=== PATIENT | female | born 1960 ===

== ENCOUNTER 2025-03-20 09:23 | Outpatient (AMB) | payer MEDICARE, OTHER, SELFPAY ==
--- NOTE | 2025-03-20 09:32 | A.OFFVIS_ITS ---
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 The joint pain began approximately one month ago, leading to an emergency room visit due to severe discomfort and sleep disturbances. The patient has a history of arthritis associated with psoriasis, which initially affected her knees and has now progressed to other joints. The patient also has a history of uncontrolled type 2 diabetes mellitus, with a recent A1c level of 10, attributed to personal stressors and lack of self-care. She reports not adhering to her diabetes management plan, which has contributed to her current health status. The patient experiences shoulder pain, particularly in both shoulders, with the right side being more painful. The pain is exacerbated by sleeping on her side and is associated with limited range of motion, especially during overhead activities. She has a history of subacromial bursitis and adhesive capsulitis in the left shoulder, which has been previously managed with injections. The patient reports knee pain, particularly in the right knee, which is aggravated by walking and climbing stairs. She has received knee injections in the past, which provided temporary relief. The pain is described as constant, sharp, and achy, with a severity of 8/10 in the morning, improving to 5/10 by the afternoon. The patient denies smoking, alcohol, and marijuana use, and has a supportive family environment. She engages in some physical activity with her grandchildren, who encourage her to exercise. - Onset: Pain began approximately one month ago. - Quality: Described as constant, sharp, dull, sore, hurting, achy, and heavy. - Severity: Rated as 8/10 in the morning, improving to 5/10 by the afternoon. - Location: Affects hands, fingers, toes, shoulders, and knees, with the right shoulder and right knee being more painful. - Exacerbating factors: Pain worsens with sleeping on the side, walking, climbing stairs, and heat exposure. - Relieving factors: Cold exposure and movement improve pain. - Interference: Pain interferes with sleep, mobility, and daily activities. - Affect: Pain impacts sleep and daily activities, causing fatigue and difficulty with mobility. - Analgesia: Currently using Tylenol Arthritis; pain rated as 8/10 in the morning, improving to 5/10 by the afternoon. - Adverse Effects: No adverse effects from current pain management reported. - Activities of Daily Living: Pain affects ability to sleep, walk, and perform overhead activities. - Aberrant Drug Related Behaviors: No signs of medication misuse or abuse reported. [facility] Medical History (Updated 03/23/25 @ 10:05 by CAMPOS Qiu) Unspecified ovarian cyst, unspecified side Tendinitis of left rotator cuff Subacromial bursitis of left shoulder joint Pterygium Microalbuminuria Plaque psoriasis Nuclear sclerosis Iron deficiency anemia Hyperlipidemia Hypertension GERD (gastroesophageal reflux disease) DM (diabetes mellitus), type 2 with renal complications Asthma Arthropathic psoriasis, unspecified Allergic rhinitis Adhesive capsulitis of left shoulder Social History (Updated 03/20/25 @ 09:45 by Montse Mckinley) Alcohol intake: never Patient Tobacco Use Status: Never used Tobacco Review of Systems Const Details: - Musculoskeletal: Reports joint pain in hands, fingers, toes, shoulders, and knees; denies numbness and tingling. - Endocrine: Reports uncontrolled diabetes with recent A1c of 10. - Respiratory: Denies smoking, alcohol, and marijuana use. - Neurological: Denies numbness and tingling, bladder or bowel dysfunction or saddle anesthesia All systems reviewed & are unremarkable except as noted in HPI and below Physical Exam Vital Signs: Last Vital Signs Pulse 79 03/20/25 09:37 BP 146/72 H 03/20/25 09:37 Pulse Ox 98 03/20/25 09:37 Oxygen Delivery Method Room Air 03/20/25 09:37 BMI result Body Mass Index 32.1 General: Appears afebrile. Alert and oriented. Mood and affect appropriate. Follows and participates in conversation appropriately. Respiratory effort is unlabored. No cough. Able to transition from sit to stand unassisted. Ambulates with bilaterally normal heel strike and toe off. Back/Spine/Pelvis Cervical Spine: cervical ROM normal, cervical muscular tenderness and No Cervical spine tenderness Thoracic/Lumbar Spine: thoracic and lumbar spine normal to inspection, Lasegue's sign negative, straight leg raise negative bilaterally, pain with thoraco-lumbar ROM, thoraco-lumbar ROM limited, No thoracic spinal tenderness and No lumbar spinal tenderness Sacroiliac joints: bilaterally tender to palpation Skin Rashes: rashes noted (lower extremities psoriatic rash with scaly patches) Extrem General: Yes capillary refill normal, Yes no clubbing, cyanosis or edema and Yes no calf tenderness Right upper extremity: shoulder/upper arm (Limited ROM due to pain) Details: normal to inspection, tenderness Location: of the A-C joint and over the subacromial bursa and crepitus; no swelling and no unusual warmth Right lower extremity: knee (Limited ROM due to pain) Details: normal to inspection, tenderness Location: of the medial joint line and of the lateral joint line, swelling Location: of the pre-patellar area and crepitus; no ecchymosis, no deformity and no unusual warmth Results Reviewed Results Reviewed: XR KNEE, RIGHT 03/20/25 CLINICAL INFORMATION: M25.561 - Pain in right knee COMPARISON: None available. TECHNIQUE: Three views of the right knee. FINDINGS: No fracture, dislocation, or suspicious bone lesion. There is grossly normal alignment. Tricompartmental osteoarthritis, moderate in the medial compartment, with mild to moderate changes in the lateral and patellofemoral compartments. There is spurring of the tibial spines. Patellofemoral alignment demonstrates mild lateral tilt. There are patellofemoral marginal osteophytes. There is a moderate suprapatellar joint effusion. Soft tissues demonstrate vascular calcifications but are otherwise normal. IMPRESSION: 1. Moderate tricompartmental osteoarthritis worst in the medial compartment. 2. Moderate suprapatellar joint effusion. XR SHOULDER, bilateral CLINICAL INFORMATION: M25.511 - Pain in right shoulder COMPARISON: None available. TECHNIQUE: AP external rotation, Grashey, scapular Y, and axillary views of the right shoulder. FINDINGS: Right shoulder: Medium-sized marginal osteophytes are present involving humeral head. There is a 1 cm central osteophyte involving superior lateral humeral head. Marginal osteophytes are small involving glenoid. There is mild narrowing of the glenohumeral joint. AC joint is intact and unremarkable. No fracture is identified. Left shoulder: There is mild AC joint arthropathy with small marginal osteophytes. There is no AC joint separation. Glenohumeral joint is unremarkable. No fractures are identified. IMPRESSION: Moderate degenerative change is present in the right shoulder joint. There is mild left AC joint arthropathy. Assessment & Plan Assessment & Plan (1) Arthropathic psoriasis, unspecified: Code(s): L40.50 - Arthropathic psoriasis, unspecified Category: Medical (2) Polyarthralgia: Code(s): M25.50 - Pain in unspecified joint Category: Medical (3) Bilateral shoulder pain: Code(s): M25.511 - Pain in right shoulder; M25.512 - Pain in left shoulder Category: Medical (4) Right knee pain: Code(s): M25.561 - Pain in right knee Category: Medical (5) Osteoarthritis of right knee: Code(s): M17.11 - Unilateral primary osteoarthritis, right knee Category: Medical (6) Bilateral shoulder pain: Code(s): M25.511 - Pain in right shoulder; M25.512 - Pain in left shoulder Category: Medical (7) Arthropathic psoriasis, unspecified: Code(s): L40.50 - Arthropathic psoriasis, unspecified Category: Medical (8) Polyarthralgia: Code(s): M25.50 - Pain in unspecified joint Category: Medical (9) Right knee pain: Code(s): M25.561 - Pain in right knee Category: Medical (10) Osteoarthritis of right knee: Code(s): M17.11 - Unilateral primary osteoarthritis, right knee Category: Medical (11) Osteoarthritis of right shoulder: Code(s): M19.011 - Primary osteoarthritis, right shoulder Category: Medical Plan The patient will be referred to a Inspector [employer] for further evaluation and management of her joint pain, particularly due to the history of arthropathic psoriasis and the recent onset of multiple joint pain. She underwent x-rays of both shoulders and right knee after today's visit, as noted above. Physical therapy is recommended to address shoulder and knee pain, with a focus on improving range of motion and strength. The patient is advised to continue using Tylenol for pain management and to consider [id number] lidocaine patches for additional relief, although insurance coverage may be limited. A diagnostic injection for the right knee is planned to evaluate the potential benefit of nerve ablation for long-term pain relief, contingent upon the patient's response to the injection. The patient's diabetes management needs to be optimized, with a target A1c of less than 7.5, to qualify for certain pain management procedures such as therapeutic injections and neuromodulation in the future. Schedule right diagnostic genicular nerve blocks with local and fluoroscopy for potential genicular RFA. Expectations, risks and benefits were reviewed. Patient is aware she will be contacted to schedule this procedure. Due to uncontrolled diabetes with elevated A1c above 10, patient is not candidate for therapeutic injections or Sprint PNS trial. All questions and concerns have been answered and patient agreed with the treatment plan. Follow up after injections and sooner as needed. Patient was informed and verbally consented to the use of an ambient scribe for clinic note documentation during this visit. Orders: Orders XR shoulder LT min 2V 03/20/25 M25.511 - Pain in right shoulder, M25.512 - Pain in left shoulder, M75.82 - Other shoulder lesions, left shoulder PT Evaluation and Treatment 03/20/25 L40.50 - Arthropathic psoriasis, unspecified, M17.11 - Unilateral primary osteoarthritis, right knee, M25.50 - Pain in unspecified joint, M25.511 - Pain in right shoulder, M25.512 - Pain in left shoulder, M25.561 - Pain in right knee XR knee RT 3V 03/20/25 M17.11 - Unilateral primary osteoarthritis, right knee, M25.561 - Pain in right knee Referrals Rheumatology Referral L40.50 - Arthropathic psoriasis, unspecified, M17.11 - Unilateral primary osteoarthritis, right knee, M25.50 - Pain in unspecified joint, M25.511 - Pain in right shoulder, M25.512 - Pain in left shoulder, M25.561 - Pain in right knee Medications: New lidocaine 5% 1 patch topical DAILY 30 ea 0RF pain 30 days M17.11 - Unilateral primary osteoarthritis, right knee, M25.561 - Pain in right knee Coding Level of Care Code New Pt Level 4 (33143) Diagnoses Arthropathic psoriasis, unspecified L40.50 Polyarthralgia M25.50 Bilateral shoulder pain M25.511; M25.512 Right knee pain M25.561 Osteoarthritis of right knee M17.11 Osteoarthritis of right shoulder M19.011
[2025-03-20 09:37] VITALS: BP 146/72; PULSE 79; O2SAT 98; BMI 32.1
--- OUTSIDE RECORDS SUMMARY | 2025-03-20 10:14 | XMS_ITS ---
Author Name [facility] Organization Unknown Care Team Organization Name Specialty Phone Email Start Date End [facility] 02/11/2025
--- OUTSIDE RECORDS SUMMARY | 2025-03-20 10:14 | XMS_ITS | Clinical Summary ---
Author Organization Patient Business Ser [facility] Address [address] [place] [address] Care Team Providers Care Interior Assemblies Developer Prover Name Role Phone Aron Godinez MD Primary Care Provider [phone] Allergies Active Allergy Reactions Criticality Noted Date Comments Fish Containing Products High 07/14/2014 Hives and lip swelling Plantain High 07/14/2014 Bananas/plantains Hives and lip swelling Medications ixekizumab (Taltz Autoinjector, 3 Pack,) 80 mg/mL injection Inject 1 mL (80 mg total) under the skin 2 (two) times a week. Historical 4 Active fluticasone propionate (FLONASE) 50 mcg/actuation nasal spray Administer 2 sprays into each nostril 1 (one) time each day. 0 Active glucose blood test strip Use as needed to check blood glucose if Jackie sensor reading for blood sugar is below 65 or if there is question of Jackie CGM accurancy. 4 Active iron,carb/vit C/vit B12/folic (IRON 100 PLUS ORAL) 1 tab every other day Active pen needle, diabetic (LITE TOUCH INSULIN PEN NEEDLES MISC) Use with insulin daily 4 Active BD Ultra-Fine Short Pen Needle 31 gauge x 5/16 needle USE WITH INSULIN DAILY 4 Active empagliflozin (Jardiance) 25 mg tablet Take 1 tablet (25 mg total) by mouth 1 (one) time each day. 90 tablet 3 4 Active lancets (Safety Lancets) 21 gauge misc Use to check BS daily 100 each 11 4 Active albuterol HFA (PROAIR HFA ; PROVENTIL HFA ; VENTOLIN HFA) 90 mcg/actuation inhaler Inhale 2 puffs by mouth every 4 (four) hours if needed for wheezing. 6.7 g 1 5 04/25/20 25 Active losartan (COZAAR) 25 mg tablet TAKE 1/2 TABLET(12.5 MG) BY MOUTH 1 TIME EACH DAY 45 tablet 1 5 Active atorvastatin (LIPITOR) 80 mg tablet TAKE 1 TABLET(80 MG) BY MOUTH 1 TIME EACH DAY 30 tablet 1 5 Active acetaminophen (TYLENOL 8 HOUR) 650 mg 8 hr tablet Take 1 tablet (650 mg total) by mouth every 8 (eight) hours if needed for mild pain. Do not crush, chew, or split. Active metFORMIN XR (GLUCOPHAGE-XR) 500 mg 24 hr tablet Take 4 tabs daily with breakfast 360 each 5 Active insulin degludec (TRESIBA FlexTouch U-200) 200 unit/mL (3 mL) CONCENTRATED injection pen 85 units SC at bedtime 5 Active diclofenac (VOLTAREN) 1 % topical gel Apply 2 g topically 2 (two) times a day. 2 g 11 5 Active Active Problems Problem Noted Date Diagnosed Date Arthropathic psoriasis, unsp ecified [place] [place], [facility] V28) 02/18/2025 Gastroesophageal reflux disease 07/19/2023 Type 2 diabetes mellitus wit h cataract ([facility] [place], [facility] V28) 05/24/2020 Subacromial bursitis of left shoulder joint 03/26 Adhesive capsulitis of left shoulder 03/08/2020 Tendinitis of left rotator cuff 03/08/2020 DM (diabetes mellitus), type 2 with renal complications ([facility] [place], [facility] V28) 11/27/2018 Overview (04/25/2024): Last Assessment & Plan: Labs ordered to be done in the next few days and any medication adjustment will be based on lab results. For now continue with Lantus 55 units daily, Trulicity 3 mg weekly and Metformin 500 mg 2 tablets daily. Discussed in detail diet to help control his blood sugars. Encouraged a low-fat, lean protein, high-fiber, low carbohydrate diet. Discussed avoiding sweets and junk food. Decrease the amount of bread, rice, pasta and potatoes. Regular exercise also encouraged to help with weight loss and provide cardiovascular benefit. Recheck in office in 3 months. Call endocrine to schedule follow-up. Avascular necrosis of lunate ([facility] V24, [facility]/ [facility] V28) 01/17/2016 Overview (04/25/2024): Noted at [facility] 01/13/16, referred to Dr Poe(ortho) HTN (hypertension) 05/29/2014 Overview (04/25/2024): Last Assessment & Plan: Continue losartan 25 mg half tablet daily. Labs ordered to be done in the next few days. Will continue to monitor blood pressures in office at next visit. Discussed dietary strategies to help control his blood pressure. Encouraged low-fat, lean protein, high-fiber, low-cholesterol, low carbohydrate diet. Regular exercise and weight loss also encouraged to help with blood pressure control. Recheck in 3 months. Hyperlipidemia with target LDL less than 100 06/2013 Overview (04/25/2024): IMO update Last Assessment & Plan: Continue atorvastatin 40 mg daily. Discussed diet, exercise and weight loss. Labs ordered to be done in the next few days and further adjustment in treatment can be based on lab results. Plaque psoriasis 11/26/2012 Overview (04/25/2024): Onset ~ 2009 UV light treatments Enbrel - did not help Humira - changed 2016 - also did not work Nuclear sclerosis 07/12/2009 Pterygium 07/12/2009 Severe obesity (BMI 35.0-39. 9) with comorbidity ([facility] V24, [facility] V28) 05/19/2008 Microalbuminuria 07/25/2007 Allergic rhinitis 11/14/2005 Asthma 03/23/2005 Iron deficiency anemia 03/23/2005 Unspecified ovarian cyst, unspecified side 03/23 Encounters Date Type Department Care Team Description 02/19/2025 Telephone Internal Medicine - [address] [phone] Aron Godinez MD 02/18/2025 9:15 AM EDT Office Visit Internal Medicine - [address] [phone] Sol Ellison NP Arthropathic psoriasis, unspecified ([facility] V24, [facility] V28) (Primary Dx); Pain in other joint 02/17/2025 9:52 AM EDT - 02/17/2025 11:59 PM EDT Hospital Encounter Radiology Department - [address] [phone] Abnormal mammogram Discharge Disposition: Home or Self Care 02/17/2025 9:52 AM EDT - 02/17/2025 11:59 PM EDT Hospital Encounter Radiology Department - [address] [phone] Abnormal mammogram Discharge Disposition: Home or Self Care 02/13/2025 12:53 PM EDT - 02/13/2025 2:[address] [facility] [address] [place] [address] Tre Mccann MD Arthritis (Primary Dx) Discharge Disposition: Home or Self Care 02/10/2025 10:00 AM EDT Office Visit Endocrinology - [address] [phone] Sandi Cummings PA Type 2 diabetes mellitus with stage 3 chronic kidney disease, unspecified whether terminal clerk insulin use, unspecified whether stage 3a or 3b CKD ([facility] V24, [facility] V28) (Primary Dx); Secondary hypertension; Microalbuminuria from Last 3 Months Immunizations Name Administration Dates Next Due H1N1 Inj Preservative Free 06/08/2009 Influenza trivalent, 0.5mL, preservative free (Fluarix; FluLaval; Fluzone) ages 6mo and older (Afluria) 3 years and older 04/06/2015,05/05/2014,04/28/2013,03/26,03/22/2011,03/04/2010,03/21/2009 ,04/10/2008,03/25/2007,04/16/2006,03/26,04/15/2004,04/28/2003 PPD Test 12/23/2012 Pneumococcal polysaccharide 23 valent (Pneumovax 23) 2yo and older 03/25/2007 Td Tetanus diptheria (Tdvax) 7yo and older 12/20/2004,12/20/2004 Tdap Tetanus diptheria acell ular pertussis (Boostrix; Adacel) 7yo and older 12/10/2012 Surgical History Surgery Date Site/Laterality Comments OTHER SURGICAL HISTORY 03/02/06 PROCEDURE: [facility] BIOPSY BONE OPEN DEEP; COMMENT: LEFT WRIST RADIUS bx-Dr. Smith CHOLECYSTECTOMY age 28's at [facility] PROCEDURE: HISTORICAL CHOLECYSTECTOMY; COMMENT: open cholecystectomy per pt COLONOSCOPY 01/29/09 PROCEDURE: HISTORICAL COLONOSCOPY; COMMENT: diverticulosis and hemorrhoids. Repeat in ten years COLONOSCOPY 07/14/14 PROCEDURE: HISTORICAL COLONOSCOPY; COMMENT: tics and hemorrhoids; repeat in ten yrs Medical History Medical History Date Comments Iron deficiency anemia, unspecified 03/23/2005 DX:Iron deficiency anemia, unspecified Other and unspecified ovarian cyst 03/23/2005 DX:Other and unspecified ovarian cyst Plantar fascial fibromatosis 03/23/2005 DX: Plantar fascial fibromatosis Unspecified asthma(493.90) 03/23/2005 DX:Un specified asthma(493.90) Allergic rhinitis, cause unspecified 11/14/2005 DX:Allergic rhinitis, cause unspecified Historical Medical DX 12/23/2013 DX:Hyperli pidemia LDL goal < 100 Historical Medical DX 03/31 DX:Diabete s with renal manifestations; COMMENT: mild microalbuminuria Type II or unspecified type diabetes mellitus with renal manifestations, not stated as uncontrolled(250.40) ([facility] V24, [facility] V28) 07/25/2007 DX:Type II or unspecified t ype diabetes mellitus with renal manifestations, not stated as uncontrolled(250.40) ([facility]) HTN (hypertension) 05/29/2014 DX:HTN (hyper tension) Avascular necrosis of lunate ([facility] [place], [facility] [place]) 01/17/2016 DX:Avascular necrosis of everette ate (HCC); COMMENT: Noted at [facility] 01/13/16, referred to Dr Poe(ortho) Type 2 diabetes mellitus wit h microalbuminuria ([facility] [place], [facility]) 11/27/2018 DX:Type 2 diabetes mellitus with microalbuminuria (HCC) DM (diabetes mellitus), type 2 with renal complications ([facility] [place], [facility]) 11/27/2018 DX:DM (diabetes mellitus), t ype 2 with renal complications (HCC) Microalbuminuria 07/25/2007 DX:Microalbumin uria Type 2 diabetes mellitus wit h cataract ([facility] [place], [facility]) 05/24/2020 DX:Type 2 diabetes mellitus with cataract (HCC) Severe obesity (BMI 35.0-39. 9) with comorbidity ([facility] V24, [facility] V28) 05/19/2008 DX:Severe obesity (BMI 35.0- 39.9) with comorbidity ([facility]) Gastroesophageal reflux disease 07/19/2023 DX:Gastroesophageal reflux disease Family History Medical History Relation Name Comments No Known Problems Aunt 1 Other: cancer kidney Aunt 2 not beryl e No Known Problems Brother 1 No Known Problems Brother 2 No Known Problems Father No Known Problems Maternal Grandfather No Known Problems Maternal Grandmother Cataracts Mother Asthma Other 1 Hypertension Other 1 Stroke Other 1 Strabismus Other 2 daughter No Known Problems Paternal Grandfather No Known Problems Paternal Grandmother No Known Problems Sister 1 No Known Problems Sister 2 No Known Problems Uncle 1 No Known Problems Uncle 2 Blindness Neg Hx Breast cancer Neg Hx Glaucoma Neg Hx Macular degeneration Neg Hx Relation Name Status Comments Aunt 1 Maternal aunt d ied of [place] Aunt 2 Brother 1 Alive x4, healthy Brother 2 (Age age 5) intesti nal problem Father (Age 55) CAD onset age 50's Maternal Grandfather Maternal Grandmother Mother Alive CAD, Other 1 Other 2 Paternal Grandfather Paternal Grandmother Sister 1 Alive x4, one has je betes & asthma Sister 2 (Age stillborn) Uncle 1 Alive Diabetes, Mater nal uncle Uncle 2 Paternal Uncle. Prostate cancer, [place] Social History Tobacco Use Types Packs/Day Years Used Date Smoking Tobacco: Never Smokeless Tobacco: Never Tobacco Cessation:Counseling Given: Not Answered Alcohol Use Standard Drinks/Week Comments Yes 0 (1 standard drink = 0.6 oz pur e alcohol) Comments No Sex and Gender Information Value Date Recorded Sex Assigned at Not on file Legal Sex Female 1:38 PM EDT Gender Identity Not on file Sexual Orientation Not on file Obstetrics History Para Term AB IAB SAB Ectopic Multiple Livin g Live Births 3 3 3 3 Date Outcome GA Total Labor Labor/2nd/3rd Weight Sex Type Anes PTL Amberly A1 A5 Name Clin Term Term Term Last Filed Vital Signs Vital Sign Reading Time Taken Comments Blood Pressure 128/68 02/18/2025 9:36 AM EDT Pulse 64 02/18/2025 9:13 AM EDT auto cuff Temperature 36.4 C (97.6 F) 02/18/2025 9:13 AM EDT Respiratory Rate 18 02/13/2025 12:5 0 PM EDT Oxygen Saturation 98% 02/13/2025 12: 50 PM EDT Inhaled Oxygen Concentration - - Weight 77.4 kg (170 lb 11.2 oz) 02/18/2025 9:13 AM EDT Height 154.9 cm (5' 1 ) 02/13/2025 12:5 0 PM EDT Body Mass Index 32.25 02/13/2025 12:50 PM EDT Plan of Treatment Upcoming Encounters Date Type Department Care Team (Late st Contact Info) Description 05/13/2025 9:15 AM EST Office Visit Internal Medicine - [address] [phone] Aron Godinez MD [address] [place] [id number] 05/26/2025 1:15 PM EST Office Visit Endocrinology [address] [phone] Sandi Cummings PA [address] [place] [id number] Health Maintenance Due Date Last Done Comments Zoster Vaccines (1 of 2) 1977 Pneumococcal Vaccine: 50+ Years (2 of 2 - PCV) 03/25/2008 03/25/2007 RSV Immunization Adult Patients (1 - Risk 60-74 years 1-dose series) 2018 Medicare Annual Wellness Visit 10/27/2020 Social Influencers of Health Screening 10/27/2020 COVID-19 Vaccine (3 - Pfizer risk series) 11/02/2020 10/05/2020, 09/13/2020 DTaP,Tdap,and Td Vaccines (4 - Td or Tdap) 12/10/2022 12/10/2012, 12/20/2004, 12/20/2004 Falls Risk Assessment 08/30/2023 Depression Screening 06/25/2024 Colorectal Cancer Screening: Colonoscopy 07/14/2024 07/14/2014, 07/14/2014 Diabetes: Annual Foot Exam 07/19/2024 07/19/2023 Influenza Vaccine (#1) 2025 5, 05/05/2014, 04/28/2013, Additional history exists Diabetes: Annual Retina Eye Exam 05/06/2025 05/06/2024 Diabetes: Blood Sugar Control Test (HGBA1C) 08/13/2025 02/10/2025, 11/07/2024, 06/03/2024, Additional history exists Diabetes: Annual GFR (Glomerular Filtration Rate) 10/27/2025 10/27/2024, 04/29/2024, 02/20/2024, Additional history exists Hypertension/CHF/CAD Annual BMP Blood Test 10/27/2025 10/27/2024, 04/29/2024, 02/20/2024, Additional history exists Diabetes: Annual Urine Albumin-Creatinine Ratio (uACR) 02/10/2026 02/10/2025, 07/19/2023 Breast Cancer Screening 02/17/2027 02/18/20, 11/11/2024, 11/07/2024, Additional history exists Cholesterol Screening (Lipid Panel) 10/27/2029 10/27/2024, 04/29/2024, 02/20/2024, Additional history exists Osteoporosis Screening (Bone Density Screening) 11/04/2033 11/05/2023, 11/05/2023 Hepatitis C Screening Completed 12/10/2012 HIB Vaccines Aged Out No longer eligi ble based on patient's age to complete this topic HPV Vaccines Aged Out No longer eligi ble based on patient's age to complete this topic Hepatitis A Vaccines Aged Out No long er eligible based on patient's age to complete this topic Hepatitis B Vaccines Aged Out No long er eligible based on patient's age to complete this topic IPV Vaccines Aged Out No longer eligi ble based on patient's age to complete this topic MMR Vaccines Aged Out No longer eligi ble based on patient's age to complete this topic Meningococcal ACWY Vaccine Aged Out N o longer eligible based on patient's age to complete this topic Meningococcal B Vaccine Aged Out No l onger eligible based on patient's age to complete this topic RSV Immunization Patients Under 20 months Aged Out No longer eligible based on patient's age to complete this topic Varicella Vaccines Aged Out No longer eligible based on patient's age to complete this topic Procedures Procedure Name Priority Date/Time Associated Diagnosis Comments US BREAST LIMITED LEFT Routine 02/17/2025 10:23 AM EDT Abnormal mammogram MG MAMMO DIAGNOSTIC ADDL VIEWS LEFT Routine 02/17/2025 10:11 AM EDT Abnormal mammogram HEMOGLOBIN A1C Routine 02/10/2025 11:14 AM EDT Type 2 diabetes mellitus with stage 3 chronic kidney disease, unspecified whether terminal clerk insulin use, unspecified whether stage 3a or 3b CKD ([facility] V24, [facility] V28) MICROALBUMIN CREATININE URINE RATIO Routine 02/10/2025 11:14 AM EDT Type 2 diabetes mellitus with stage 3 chronic kidney disease, unspecified whether terminal clerk insulin use, unspecified whether stage 3a or 3b CKD (CMS/HCC V24, [facility] V28) POC GLUCOSE Routine 02/10/2025 10:39 AM EDT Type 2 diabetes mellitus with stage 3 chronic kidney disease, unspecified whether shelter insulin use, unspecified whether stage 3a or 3b CKD (CMS/HCC V24, [facility] V28) BASIC METABOLIC PANEL Routine 10/27/2024 11:29 AM EDT Type 2 diabetes mellitus with cataract ([facility] V24, [facility] V28) LIPID PANEL WITH REFLEX TO DIRECT LDL Routine 10/27/2024 11:29 AM EDT Type 2 diabetes mellitus with cataract ([facility] V24, [facility] V28) DXA BONE DENSITY STUDY 1+ SITS AXIAL SKEL Routine 11/05/2023 10:54 AM EDT Encounter for screening for osteoporosis DIABETES FOOT EXAM Routine 07/19/2023 COLONOSCOPY Routine 07/14/2014 HEPATITIS C SCREENING Routine 12/10/2012 from Last 3 Months or Most Recently Relevant to Health Maintenance Results * US Breast Limited Left (02/17/2025 10:23 AM EDT) Anatomical Region Laterality Modality Breast Left Ultrasound 02/17/2025 10:1 4 AM EDT Impressions 02/17/2025 10:36 AM EDT Benign. The focal asymmetry seen on the previous mammogram has resolved. The 2 adjacent nodular hyperechoic areas with small cystic components seen superficially at the 10 o'clock position in the left breast on the previous study have resolved in the interim. Bilateral mammogram October 2025 to resume annual screening is recommended. Findings and recommendations were conveyed to the patient. BI-RADS CATEGORY: 1 - NEGATIVE RECOMMENDATION: Return to annual mammography. Return to annual mammography. Return to annual mammography. Return to annual mammography. Mammo Location: [facility], [address] [place] [address], [id number], . -------- FINAL REPORT -------- Dictated By: Mckayla Muniz Dictated Date: 02/17/2025 10:14 ET Assigned Physician: Mckayla Muniz Reviewed and Electronically Signed By: Mckayla Muniz Signed Date: 02/17/2025 10:36 ET Workstation ID: [id number] Transcribed By: Self Edit Transcribed Date: 02/17/2025 10:22 ET Narrative 02/17/2025 10:36 AM EDT CLINICAL: 64 years old, Female, 3 month follow-up focal asymmetry upper inner left breast 10 o'clock. COMPARISON: Bilateral mammograms dating back to 01/07/2016 with most recent of 11/07/2024. Diagnostic left breast mammogram 11/11/2024. Left breast ultrasound 11/11/2024. FINDINGS: MAMMOGRAPHY TECHNIQUE: MLO and CC views of the left breast were obtained digitally with 3-D mammogram (digital breast tomosynthesis). Computer-aided detection was utilized in evaluation of this exam (CAD). There is no evidence of suspicious mass or architectural distortion. No worrisome calcifications are evident. Focal asymmetry seen in the medial upper left breast on the previous study is no longer present. BREAST DENSITY: B - There are scattered areas of fibroglandular density. ULTRASOUND TECHNIQUE: Ultrasound evaluation of the medial upper left breast was performed. There is no evidence of morphologically suspicious mass. Procedure Note Mckayla Muniz MD - 02/17/2025 CLINICAL: 64 years old, Female, 3 month follow-up focal asymmetry upperinner left breast 10 o'clock. COMPARISON: Bilateral mammograms dating back to 01/07/2016 with mostrecent of 11/07/2024. Diagnostic left breast mammogram 11/11/2024. Leftbreast ultrasound 11/11/2024. FINDINGS: MAMMOGRAPHY TECHNIQUE: MLO and CC views of the left breast were obtained digitallywith 3-D mammogram (digital breast tomosynthesis). Computer-aideddetection was utilized in evaluation of this exam (CAD). There is no evidence of suspicious mass or architectural distortion. Noworrisome calcifications are evident. Focal asymmetry seen in the medialupper left breast on the previous study is no longer present. BREAST DENSITY: B - There are scattered areas of fibroglandular density. ULTRASOUND TECHNIQUE: Ultrasound evaluation of the medial upper left breast wasperformed. There is no evidence of morphologically suspicious mass. IMPRESSION: Benign. The focal asymmetry seen on the previous mammogram has resolved.The 2 adjacent nodular hyperechoic areas with small cystic components seensuperficially at the 10 o'clock position in the left breast on theprevious study have resolved in the interim. Bilateral mammogram October 2025to resume annual screening is recommended. Findings and recommendationswere conveyed to the patient. BI-RADS CATEGORY: 1 - NEGATIVE RECOMMENDATION: Return to annual mammography. Return to annual mammography. Return toannual mammography. Return to annual mammography. Mammo Location: [facility], [address] [place] [address], [id number], . -------- FINAL REPORT -------- Dictated By: Mckayla Muniz Dictated Date: 02/17/2025 10:14 ET Assigned Physician: Mckayla Muniz Reviewed and Electronically Signed By: Mckayla Muniz Signed Date: 02/17/2025 10:36 ET Workstation ID: [id number] Transcribed By: Self Edit Transcribed Date: 02/17/2025 10:22 ET us Aron Godinez MD IMG US PROCEDURES Final Result * MG Mammo Diagnostic Addl Views Left (02/17/2025 10:11 AM EDT) Anatomical Region Laterality Modality Breast Left Mammography 02/17/2025 10:1 4 AM EDT Impressions 02/17/2025 10:36 AM EDT Benign. The focal asymmetry seen on the previous mammogram has resolved. The 2 adjacent nodular hyperechoic areas with small cystic components seen superficially at the 10 o'clock position in the left breast on the previous study have resolved in the interim. Bilateral mammogram October 2025 to resume annual screening is recommended. Findings and recommendations were conveyed to the patient. BI-RADS CATEGORY: 1 - NEGATIVE RECOMMENDATION: Return to annual mammography. Return to annual mammography. Return to annual mammography. Return to annual mammography. Mammo Location: [facility], [address] [place] [address], [phone], . -------- FINAL REPORT -------- Dictated By: Mckayla Muniz Dictated Date: 02/17/2025 10:14 ET Assigned Physician: Mckayla Muniz Reviewed and Electronically Signed By: Mckayla Muniz Signed Date: 02/17/2025 10:36 ET Workstation ID: [id number] Transcribed By: Self Edit Transcribed Date: 02/17/2025 10:22 ET Narrative 02/17/2025 10:36 AM EDT CLINICAL: 64 years old, Female, 3 month follow-up focal asymmetry upper inner left breast 10 o'clock. COMPARISON: Bilateral mammograms dating back to 01/07/2016 with most recent of 11/07/2024. Diagnostic left breast mammogram 11/11/2024. Left breast ultrasound 11/11/2024. FINDINGS: MAMMOGRAPHY TECHNIQUE: MLO and CC views of the left breast were obtained digitally with 3-D mammogram (digital breast tomosynthesis). Computer-aided detection was utilized in evaluation of this exam (CAD). There is no evidence of suspicious mass or architectural distortion. No worrisome calcifications are evident. Focal asymmetry seen in the medial upper left breast on the previous study is no longer present. BREAST DENSITY: B - There are scattered areas of fibroglandular density. ULTRASOUND TECHNIQUE: Ultrasound evaluation of the medial upper left breast was performed. There is no evidence of morphologically suspicious mass. Procedure Note Mckayla Muniz MD - 02/17/2025 CLINICAL: 64 years old, Female, 3 month follow-up focal asymmetry upperinner left breast 10 o'clock. COMPARISON: Bilateral mammograms dating back to 01/07/2016 with mostrecent of 11/07/2024. Diagnostic left breast mammogram 11/11/2024. Leftbreast ultrasound 11/11/2024. FINDINGS: MAMMOGRAPHY TECHNIQUE: MLO and CC views of the left breast were obtained digitallywith 3-D mammogram (digital breast tomosynthesis). Computer-aideddetection was utilized in evaluation of this exam (CAD). There is no evidence of suspicious mass or architectural distortion. Noworrisome calcifications are evident. Focal asymmetry seen in the medialupper left breast on the previous study is no longer present. BREAST DENSITY: B - There are scattered areas of fibroglandular density. ULTRASOUND TECHNIQUE: Ultrasound evaluation of the medial upper left breast wasperformed. There is no evidence of morphologically suspicious mass. IMPRESSION: Benign. The focal asymmetry seen on the previous mammogram has resolved.The 2 adjacent nodular hyperechoic areas with small cystic components seensuperficially at the 10 o'clock position in the left breast on theprevious study have resolved in the interim. Bilateral mammogram October 2025to resume annual screening is recommended. Findings and recommendationswere conveyed to the patient. BI-RADS CATEGORY: 1 - NEGATIVE RECOMMENDATION: Return to annual mammography. Return to annual mammography. Return toannual mammography. Return to annual mammography. Mammo Location: [facility], [address] [place] [address], [id number], . -------- FINAL REPORT -------- Dictated By: Mckayla Muniz Dictated Date: 02/17/2025 10:14 ET Assigned Physician: Mckayla Muniz Reviewed and Electronically Signed By: Mckayla Muniz Signed Date: 02/17/2025 10:36 ET Workstation ID: [id number] Transcribed By: Self Edit Transcribed Date: 02/17/2025 10:22 ET us Aron Godinez MD IMG BI PROCEDURES Final Result * (ABNORMAL) Microalbumin creatinine urine ratio (02/10/2025 11:14 AM EDT) Creatinine, Urine 64.0 mg/dL LAB CHEMISTRY METHOD 02/10/2025 1:47 PM EDT [facility] Microalb, Ur 61.4(H) 0.0 - 29.0 mg/L LAB CHEMISTRY METHOD 02/10/2025 1:47 PM EDT [facility] Microalb/Crea t Ratio 96(H) <30 mg/g creat LAB CHEMISTRY METHOD 02/10/2025 1:47 PM EDT [facility] Urine Urine specimen from urethra / Unknown Non-blood Collection / Unknown 02/10/2025 11:14 AM EDT 02/10/2025 11:14 AM EDT us Sandi JASMINE LAB URINE ORDERABLES Final Result [facility] [address] [place] [address], [place] [phone] * (ABNORMAL) Hemoglobin A1c (02/10/2025 11:14 AM EDT) [facility] Hemoglobin A1C 10.7(H) <6.5 % LAB CHEMISTRY METHOD 02/10/2025 1:32 PM EDT [facility] Mean Bld Glu Estim. 260 mg/dL LAB CHEMISTRY METHOD 02/10/2025 1:32 PM EDT [facility] Blood Venous blood specimen / Unknown Venipuncture / Unknown 02/10/2025 11:14 AM EDT 02/10/2025 11:14 AM EDT Sandi JASMINE LAB BLOOD ORDERABLES Final Result [facility] [address] [place] [address], [place] [phone] * POC glucose manually resulted (02/10/2025 10:39 AM EDT) [facility] Glucose POC 166 mg/dL Comment:Fasting Blood Capillary blood specimen / Unknown 02/10/2025 10:39 AM EDT us Sandi JASMINE POINT OF CARE TEST ENTER/ED IT ORDERABLES Final Result * (ABNORMAL) Lipid panel with reflex to direct LDL (10/27/2024 11:29 AM EDT) [facility] Cholesterol 212(H) 0 - 200 mg/dL LAB CHEMISTRY METHOD 10/27/2024 3:37 PM EDT [facility] Triglycerides 147 0 - 150 mg/dL LAB CHEMISTRY METHOD 10/27/2024 3:37 PM EDT [facility] HDL 35(L) >=40 mg/dL LAB CHEMISTRY METHOD 10/27/2024 3:37 PM EDT [facility] LDL Calculated 148(H) 0 - 100 mg/dL LAB CHEMISTRY METHOD 10/27/2024 3:37 PM EDT [facility] VLDL Cholesterol Jam 29.4 mg/dL LAB CHEMISTRY METHOD 10/27/2024 3:37 PM EDT [facility] Non HDL Chol. (LDL+VLDL) 177(H) <145 mg/dL LAB CHEMISTRY METHOD 10/27/2024 3:37 PM EDT [facility] Chol/HDL Ratio 6.1(H) 0.0 - 4.4 LAB CHEMISTRY METHOD 10/27/2024 3:37 PM EDT [facility] Blood Venous blood specimen / Unknown Venipuncture / Unknown 10/27/2024 11:29 AM EDT 10/27/2024 11:29 AM EDT us Aron Godinez MD LAB BLOOD ORDERABLES Final Res ult [facility] [address] [place] [address], [place] [phone] * (ABNORMAL) Basic metabolic panel (10/27/2024 11:29 AM EDT) Sodium 141 133 - 145 mmol/L LAB CHEMISTRY METHOD 10/27/2024 3:31 PM [facility] Potassium 3.7 3.5 - 5.5 mmol/L LAB CHEMISTRY METHOD 10/27/2024 3:31 PM [facility] Chloride 106 96 - 110 mmol/L LAB CHEMISTRY METHOD 10/27/2024 3:31 PM [facility] CO2 27 21 - 32 mmol/L LAB CHEMISTRY METHOD 10/27/2024 3:31 PM [facility] Anion Gap 8 3 - 11 LAB CHEMISTRY METHOD 10/27/2024 3:31 PM [facility] Glucose 120(H) 70 - 100 mg/dL LAB CHEMISTRY METHOD 10/27/2024 3:31 PM [facility] BUN 13 5 - 25 mg/dL LAB CHEMISTRY METHOD 10/27/2024 3:31 PM EDT [facility] Creatinine 0.63 0.50 - 1.10 mg/dL LAB CHEMISTRY METHOD 10/27/2024 3:31 PM EDT [facility] eGFR 98 >=60 mL/min/1. 73m2 LAB CHEMISTRY METHOD 10/27/2024 3:31 PM EDT [facility] Comment:Calculation based on the Chronic Kidney Disease Epidemiology Collaboration (CKD-EPI) equation refit without adjustment for race. BUN/Creatinine Ratio 20.6 LAB CHEMISTRY METHOD 10/27/2024 3:31 PM EDT [facility] Calcium 9.2 8.5 - 10.5 mg/dL LAB CHEMISTRY METHOD 10/27/2024 3:31 PM EDT [facility] Blood Venous blood specimen / Unknown Venipuncture / Unknown 10/27/2024 11:29 AM EDT 10/27/2024 11:29 AM EDT us Aron Godinez MD LAB BLOOD ORDERABLES Final Res ult [facility] [address] [place] [address], * DXA BONE DENSITY STUDY 1+ SITS AXIAL SKEL (11/05/2023 10:54 AM EDT) Anatomical Region Laterality Modality Bone Densitometr y 09/12/2023 2:41 PM EDT Narrative 11/05/2023 1:55 PM EDT BONE DENSITY Lumbar Spine T-score is -1.1 (SD relative to 20-29 y/o adult) Z-score is +0.7 (SD relative to age matched peers) This is consistent with osteopenia by criteria defined by the WHO. Left Hip T-score is -1.0 Z-score is +0.5 This is normal by criteria defined by the WHO. Impression: Based on the World Health Organization criteria, Andie Delacruz should be classified as having osteopenia. This patient has a 7.5% risk of major osteoporotic fracture and a 0.5% risk of hip fracture over the next 10 years. (World Health Organization Fracture Risk Assessment) [facility] Department of Internal Medicine recommends using National Osteoporosis Foundation (NOF) guidelines in treatment decisions related to osteoporosis. NOF guidelines suggest considering treatment for postmenopausal women and men aged 50 or older presenting with the following: History of hip or vertebral fracture. T-score less than or equal to -2.5 (DXA) at the femoral neck, total hip, or spine, after appropriate evaluation to exclude secondary causes. Low bone mass (T-score between -1.0 and -2.5 at the femoral neck or spine) AND a 10-year probability of a hip fracture greater than or equal to 3% OR a 10-year probability of a major osteoporosis-related fracture greater than or equal to 20% based on the [place]-adapted WHO algorithm Please note that all treatment decisions require clinical judgment and consideration of individual patient factors, including patient preferences, co-morbidities, previous drug use, risk factors not captured in the FRAX model (e.g., frailty, falls, vitamin D deficiency, increased bone turnover, interval significant decline in bone density) and possible under- or over-estimation of fracture risk by FRAX. Procedure Note Varun Washburn MD - 02/11/2024 BONE DENSITY Lumbar Spine T-score is -1.1 (SD relative to 20-29 y/o adult) Z-score is +0.7 (SD relative to age matched peers) This is consistent with osteopenia by criteria defined by the WHO. Left Hip T-score is -1.0 Z-score is +0.5 This is normal by criteria defined by the WHO. Impression: Based on the World Health Organization criteria, Andie Delacruz should beclassified as having osteopenia. This patient has a 7.5% risk of majorosteoporotic fracture and a 0.5% risk of hip fracture over the next 10years. (World Health Organization Fracture Risk Assessment) [facility] Department of Internal Medicine recommendsusing National Osteoporosis Foundation (NOF) guidelines in treatmentdecisions related to osteoporosis. NOF guidelines suggest consideringtreatment for postmenopausal women and men aged 50 or older presentingwith the following: History of hip or vertebral fracture. T-score less than or equal to -2.5 (DXA) at the femoral neck, total hip,or spine, after appropriate evaluation to exclude secondary causes. Low bone mass (T-score between -1.0 and -2.5 at the femoral neck or spine)AND a 10-year probability of a hip fracture greater than or equal to 3% ORa 10-year probability of a major osteoporosis-related fracture greaterthan or equal to 20% based on the [place]-adapted WHO algorithm Please note that all treatment decisions require clinical judgment andconsideration of individual patient factors, including patientpreferences, co-morbidities, previous drug use, risk factors not capturedin the FRAX model (e.g., frailty, falls, vitamin D deficiency, increasedbone turnover, interval significant decline in bone density) and possibleunder- or over-estimation of fracture risk by FRAX. Sandi JASMINE IMG DXA PROCEDURES Final Re sult * Diabetes Foot Exam (07/19/2023) [facility] Diabetes: Annual Foot Exam abstracted [facility] Provider HEALTH MAINTENANCE Final Result * Colonoscopy (07/14/2014) [facility] Colonoscopy completed Anatomical Region Laterality Modality Other [facility] Provider HEALTH MAINTENANCE Final Result * Hepatitis C Screening (12/10/2012) [facility] Hepatitis C Screening negative [facility] Provider HEALTH MAINTENANCE Final Result from Last 3 Months or Most Recently Relevant to Health Maintenance Insurance [facility] MEDIC[facility] Care Teams Interior Assemblies Developer Prover Relationship Specialty Start Date End Date Aron Godinez MD [address] [place] [id number] PCP - General Internal Medicine 04/29/24
== END 2025-03-20 10:05 | disposition home or self-care (01) ==
LOC: HO.PMC 09:24
PROVIDERS: PCP Internal Medicine; Visit Provider Nurse Practitioner Family
DX: L40.50 Arthropathic psoriasis, unspecified (principal); M25.50 Pain in unspecified joint; M25.511 Pain in right shoulder; M25.512 Pain in left shoulder; M25.561 Pain in right knee; M17.11 Unilateral primary osteoarthritis, right knee; M19.011 Primary osteoarthritis, right shoulder
CPT/HCPCS: 99204

== ENCOUNTER 2025-03-20 09:23 | Outpatient (REF) | payer MEDICARE, OTHER, SELFPAY ==
--- NOTE | ~2025-03-20 | XR_ITS ---
EXAMINATION: XR SHOULDER, bilateral CLINICAL INFORMATION: M25.511 - Pain in right shoulder COMPARISON: None available. TECHNIQUE: AP external rotation, Grashey, scapular Y, and axillary views of the right shoulder. FINDINGS: Right shoulder: Medium-sized marginal osteophytes are present involving humeral head. There is a 1 cm central osteophyte involving superior lateral humeral head. Marginal osteophytes are small involving glenoid. There is mild narrowing of the glenohumeral joint. AC joint is intact and unremarkable. No fracture is identified. Left shoulder: There is mild AC joint arthropathy with small marginal osteophytes. There is no AC joint separation. Glenohumeral joint is unremarkable. No fractures are identified. XR/XR Shoulder Tyshawn min 2V IMPRESSION: Moderate degenerative change is present in the right shoulder joint. There is mild left AC joint arthropathy. Electronically signed by: Darian Mccormick MD 03/20/2025 11:53 AM EDT
--- NOTE | ~2025-03-20 | XR_ITS ---
EXAMINATION: XR KNEE, RIGHT CLINICAL INFORMATION: M25.561 - Pain in right knee COMPARISON: None available. TECHNIQUE: Three views of the right knee. FINDINGS: No fracture, dislocation, or suspicious bone lesion. There is grossly normal alignment. Tricompartmental osteoarthritis, moderate in the medial compartment, with mild to moderate changes in the lateral and patellofemoral compartments. There is spurring of the tibial spines. Patellofemoral alignment demonstrates mild lateral tilt. There are patellofemoral marginal osteophytes. There is a moderate suprapatellar joint effusion. Soft tissues demonstrate vascular calcifications but are otherwise normal. XR/XR knee RT 3V IMPRESSION: 1. Moderate tricompartmental osteoarthritis worst in the medial compartment. 2. Moderate suprapatellar joint effusion. Electronically signed by: Mario Calhoun MD 03/20/2025 11:40 AM EDT
== END 2025-03-20 09:24 | disposition home or self-care (01) ==
LOC: HO.XRAY 09:23
PROVIDERS: PCP Internal Medicine; Visit Provider Nurse Practitioner Family
DX: L40.50 Arthropathic psoriasis, unspecified (principal); M17.11 Unilateral primary osteoarthritis, right knee; E11.9 Type 2 diabetes mellitus without complications; M75.82 Other shoulder lesions, left shoulder; M19.011 Primary osteoarthritis, right shoulder; Z79.899 Other long term (current) drug therapy
CPT/HCPCS: 73030; 73562; 99202

== ENCOUNTER → 2025-03-20 10:23 | Outpatient (BNV) | payer MEDICARE, OTHER, SELFPAY | PROVIDERS: PCP Internal Medicine; Visit Provider Radiology Diagnostic Radiology | DX: M19.011 Primary osteoarthritis, right shoulder (principal); M19.012 Primary osteoarthritis, left shoulder; M17.11 Unilateral primary osteoarthritis, right knee | CPT/HCPCS: 73562 ==

== ENCOUNTER 2025-05-14 06:14 | Outpatient (REF) | payer MEDICARE, OTHER, SELFPAY ==
--- OUTSIDE RECORDS SUMMARY | 2025-05-14 06:16 | XMS_ITS | Encounter Summary ---
Author Organization [facility] Address [address] [place] [address] Care Team Providers Care Trimming Machine Set Up Operator Name Role Phone Aron Godinez MD Primary Care Provider [phone] Encounter Details Date Type Department Care Team Description 03/06/2023 Build Master Report Medical Records [address] [place] [id number] Jeff Lala MD Social History Tobacco Use Types Packs/Day Years Used Date Smoking Tobacco: Never Smokeless Tobacco: Never Alcohol Use Standard Drinks/Week Comments Yes 0 (1 standard drink = 0.6 oz pur e alcohol) occasional social Sex Assigned at Date Recorded Not on file Job Start Date Occupation Industry Not on file Not on file Not on file documented as of this encounter Plan of Treatment Not on file documented as of this encounter Visit Diagnoses Not on filedocumented in this encounter Care Teams Trimming Machine Set Up Operator Relationship Specialty Start Date End Date Aron Godinez MD [address] [place] [address] PCP - General Internal Medicine 05/17/20 documented as of this encounter
--- OUTSIDE RECORDS SUMMARY | 2025-05-14 06:16 | XMS_ITS | Encounter Summary ---
Author Organization [facility] Address [address] [place] [address] Care Team Providers Care Circulating Nurse Name Role Phone Aron Godinez MD Primary Care Provider [phone] Reason for Visit * Reason Onset Date Comments Faxed Refill 08/09/2020 Encounter Details Date Type Department Care Team Description 08/09/2020 Refill Adult Medicine - [address] [address] Aron Godinez MD [address] [place] [phone] Faxed Refill Social History Tobacco Use Types Packs/Day Years Used Date Smoking Tobacco: Never Smokeless Tobacco: Never Alcohol Use Standard Drinks/Week Comments Yes 0 (1 standard drink = 0.6 oz pur e alcohol) occasional social Sex Assigned at Date Recorded Not on file Job Start Date Occupation Industry Not on file Not on file Not on file COVID-19 Exposure Response Date Recorded In the last month, have you been in contact with someone who was confirmed or suspected to have Coronavirus / COVID-19? No / Unsure 07/17/2020 9:48 AM EST documented as of this encounter Miscellaneous Notes * Telephone Encounter - Leroy Cox M.A. - 08/09/2020 3:40 PM EST Last office visit 12 Lab Results Component Value Date HGBA1C 8.6 07/17/2020 MALBUR 520.0 05/22/2020 MALBCR 298.8 05/22/2020 CHOL 152 07/17/2020 LDL 88 07/17/2020 HDL 45 07/17/2020 TRIG 99 07/17/2020 GLU 190 05/22/2020 CREAT 0.64 05/22/2020 * Telephone Encounter - Hattie Fernandez - 08/09/2020 9:40 AM EST Patient would like script to be: E-PRESCRIBED/FAXED TO PHARMACY WHEN WAS THE PATIENT'S LAST APPOINTMENT IN ADULT MEDICINE? 07/14/20 WHEN WAS THE LAST TIME THE PATIENT SAW THEIR PCP? Same as above Does patient have an upcoming appointment? No (THE MEDICATION REQUESTED IS ON THE MED LIST ABOVE) All of the medications requested were on the CURRENT MEDS list Did you check the Pharmacy information above?: YES Patient wants: 30 -day supply Is this a mail order prescription request ? NO If the refill is from a FAXED refill request what is the RX # listed on the fax? N/A Patients current insurance carrier is: Payor: [employer] SELF FUNDED / Plan: HMO $20 ERICK 1500 / Product Type: HMO [id number] documented in this encounter Plan of Treatment Not on file documented as of this encounter Visit Diagnoses Diagnosis Type 2 diabetes mellitus with microalbuminuria, with long-term current use of insulin (HCC) Type 2 diabetes, uncontrolled, with renal manifestation Type II or unspecified type diabetes mellitus with renal manifestations, uncontrolled documented in this encounter Care Teams Circulating Nurse Relationship Specialty Start Date End Date Aron Godinez MD [address] [place] [id number] PCP - General Internal Medicine 05/17/20 documented as of this encounter
--- OUTSIDE RECORDS SUMMARY | 2025-05-14 06:16 | XMS_ITS | Encounter Summary ---
Author Organization [facility] Address [address] [place] [address] Care Team Providers Care Project Assistant Name Role Phone Millie Whitney MD Primary Care Provider Unav ailable Aron Godinez MD Primary Care Provider [phone] Encounter Details Date Type Department Care Team Description 07/07/2013 Dredge Operator Report Medical Records [address] [place] [id number] Bonifacio Slaughter MD Social History Tobacco Use Types Packs/Day Years Used Date Smoking Tobacco: Never Smokeless Tobacco: Never Alcohol Use Standard Drinks/Week Comments No 0 (1 standard drink = 0.6 oz pur e alcohol) Sex Assigned at Date Recorded Not on file Job Start Date Occupation Industry Not on file Not on file Not on file documented as of this encounter Plan of Treatment Not on file documented as of this encounter Visit Diagnoses Not on filedocumented in this encounter Care Teams Project Assistant Relationship Specialty Start Date End Date Millie Whitney MD PCP - General 06/26/07 05/16/20 Aron Godinez MD [address] [place] [id number] PCP - General Internal Medicine 05/17/20 documented as of this encounter
--- OUTSIDE RECORDS SUMMARY | 2025-05-14 06:16 | XMS_ITS | Encounter Summary ---
Author Organization [facility] Address [address] [place] [address] Care Team Providers Care Kiln Head House Operator Name Role Phone Millie Whitney MD Primary Care Provider Unav Aron Hernandez MD Primary Care Provider [phone] Encounter Details Date Type Department Care Team Description 04/22/2016 Release of Information Medical Records [address] [place] [id number] Abstract, Provider Social History Tobacco Use Types Packs/Day Years [...] on filedocumented in this encounter Care Teams Kiln Head House Operator Relationship Specialty Start Date End Date Millie Whitney MD PCP - General 06/26/07 05/16/20 Aron Godinez MD [address] [place] [id number] PCP - General Internal Medicine 05/17/20 documented as of this encounter
--- OUTSIDE RECORDS SUMMARY | 2025-05-14 06:16 | XMS_ITS | Encounter Summary ---
Author Organization [facility] Address [address] [place] [address] Care Team Providers Care Security Monitor Name Role Phone Aron Godinez MD Primary Care Provider [phone] Encounter Details Date Type Department Care Team Description 09/13/2023 Marketing Manager Report Medical Records [address] [place] [id number] Jeff Lala MD Social History Tobacco Use [...] on filedocumented in this encounter Care Teams Security Monitor Relationship Specialty Start Date End Date Aron Godinez MD [address] [place] [id number] PCP - General Internal Medicine 05/17/20 documented as of this encounter
--- OUTSIDE RECORDS SUMMARY | 2025-05-14 06:16 | XMS_ITS | Encounter Summary ---
Author Organization [facility] Address [address] [place] [address] Care Team Providers Care Finishing Area Operator Name Role Phone Aron Godinez MD Primary Care Provider [phone] Reason for Visit * Reason Onset Date Comments APPOINTMENT 07/16/2023 Lmtcb on , ple ase transfer call to ext: [phone] Thanks. JESUS VENEGAS Encounter Details Date Type Department Care Team Description 07/16/2023 Telephone Adult Medicine [address] [address] Aron Godienz MD [address] [place] [phone] APPOINTMENT (Cong on , please transfer call to ext: [phone] Thanks. JESUS VENEGAS/) Social History Tobacco Use Types Packs/Day Years Used Date Smoking Tobacco: Never Smokeless Tobacco: Never Alcohol Use Standard Drinks/Week Comments Yes 0 (1 standard drink = 0.6 oz pur e alcohol) occasional social Sex Assigned at Date Recorded Not on file Job Start Date Occupation Industry Not on file Not on file Not on file documented as of this encounter Miscellaneous Notes * Telephone Encounter - Rocio Martell - 07/16/2023 4:40 PM EST Patient is already booked for 07/19/2023 * Telephone Encounter - Carmina Seals - 07/16/2023 2:43 PM EST Patient calling back said please call after 3:30 or leave a vm * Telephone Encounter - Carmina Seals - 07/16/2023 11:59 AM EST Pt calling back could not get through please return call said best time to reach after 2:30 documented in this encounter Plan of Treatment Not on file documented as of this encounter Visit Diagnoses Not on filedocumented in this encounter Care Teams Finishing Area Operator Relationship Specialty Start Date End Date Aron Godinez MD [address] [place] [address] PCP - General Internal Medicine 05/17/20 documented as of this encounter
--- OUTSIDE RECORDS SUMMARY | 2025-05-14 06:16 | XMS_ITS | Encounter Summary ---
Author Organization [facility] Address [address] [place] [address] Care Team Providers Care Seal Mixer Name Role Phone Millie Whitney MD Primary Care Provider Unav Aron Hernandez MD Primary Care Provider [phone] Encounter Details Date Type Department Care Team Description 11/01/2015 Beef Cattle Specialist Report Medical Records [address] [place] [id number] Rosalind Hackett Social History Tobacco Use Types Packs/Day Years [...] on filedocumented in this encounter Care Teams Seal Mixer Relationship Specialty Start Date End Date Millie Whitney MD PCP - General 06/26/07 05/16/20 Aron Godinez MD [address] [place] [id number] PCP - General Internal Medicine 05/17/20 documented as of this encounter
--- OUTSIDE RECORDS SUMMARY | 2025-05-14 06:16 | XMS_ITS | Encounter Summary ---
Author Organization [facility] Address [address] [place] [address] Care Team Providers Care Staff Developer Name Role Phone Aron Godinez MD Primary Care Provider [phone] Reason for Visit * Reason Onset Date Comments Faxed Refill 10/18/2020 Encounter Details Date Type Department Care Team Description 10/18/2020 Refill Endocrinology - [place] [address] [place] [address] Jairo Jones MD Faxed Refill Social History Tobacco Use Types [...] or suspected to have Coronavirus / COVID-19? Unable to assess 10/21/2020 3:46 PM EDT documented as of this encounter Miscellaneous Notes * Telephone Encounter - Aurea Bhatia M.A. - 10/18/2020 2:16 PM EDT Date of last office visit was 05/27/20 Lab Results Component Value Date HGBA1C 11.3 10/11/2020 MALBUR 672.0 10/11/2020 MALBCR 324.6 10/11/2020 CHOL 141 10/11/2020 LDL 85 10/11/2020 HDL 39 10/11/2020 TRIG 87 10/11/2020 GLU 299 10/11/2020 CREAT 0.68 10/11/2020 * Telephone Encounter - Roma Ball - 10/18/2020 8:30 AM EDT Patient would like script to be: E-PRESCRIBED/FAXED TO PHARMACY WHEN WAS THE PATIENT'S LAST APPOINTMENT WITH THE PRESCRIBING PROVIDER? 05/27/20 Does patient have an upcoming appointment? No-[facility] to refill request. Appt due as needed (THE MEDICATION REQUESTED IS ON THE MED LIST ABOVE) All of the medications requested were on the CURRENT MEDS list Did you check the Pharmacy information above?: YES Patient wants: 30 -day supply Is this a mail order prescription request ? NO Patients current insurance carrier is: Payor: [facility] SELF FUNDED / Plan: O $20 [place] 1500 / Product Type: HMO [id number] documented in this encounter Plan of Treatment Not on file documented as of this encounter Visit Diagnoses Diagnosis Type 2 diabetes mellitus with microalbuminuria, with long-term current use of insulin (HCC) Type 2 diabetes, uncontrolled, with renal manifestation Type II or unspecified type diabetes mellitus with renal manifestations, uncontrolled documented in this encounter Care Teams Staff Developer Relationship Specialty Start Date End Date Aron Godinez MD [address] [place] [id number] PCP - General Internal Medicine 05/17/20 documented as of this encounter
--- OUTSIDE RECORDS SUMMARY | 2025-05-14 06:16 | XMS_ITS | Encounter Summary ---
Author Organization [facility] Address [address] [place] [address] Care Team Providers Care Policy Intern Name Role Phone Aron Godinez MD Primary Care Provider [phone] Encounter Details Date Type Department Care Team Description 09/12/2023 Telephone Endocrinology - [place] [address] [place] [address] Sandi Cummings PA-C [address] [place] [address] Social History Tobacco Use Types Packs/Day Years [...] encounter Miscellaneous Notes * Telephone Encounter - Sandi Cummings PA-C - 09/12/2023 2:49 PM EDT Please call patient and see if she can follow-up with you in about 2 weeks for CGM download. She just started CGM earlier today will get more data on glucose patterns documented in this encounter Plan of Treatment Not on file documented as of this encounter Visit Diagnoses Not on filedocumented in this encounter Care Teams Policy Intern Relationship Specialty Start Date End Date Aron Godinez MD [address] [place] [address] PCP - General Internal Medicine 05/17/20 documented as of this encounter
--- OUTSIDE RECORDS SUMMARY | 2025-05-14 06:16 | XMS_ITS | Encounter Summary ---
Author Organization [facility] Address [address] [place] [address] Care Team Providers Care Chemist Organic Name Role Phone Millie Whitney MD Primary Care Provider Unav Aron Hernandez MD Primary Care Provider [phone] Encounter Details Date Type Department Care Team Description 07/22/2013 Transfer Records Medical Records [address] [place] [id number] Abstract, Provider Social History Tobacco Use Types [...] on filedocumented in this encounter Care Teams Chemist Organic Relationship Specialty Start Date End Date Millie Whitney MD PCP - General 06/26/07 05/16/20 Aron Godinez MD [address] [place] [address] PCP - General Internal Medicine 05/17/20 documented as of this encounter
--- OUTSIDE RECORDS SUMMARY | 2025-05-14 06:16 | XMS_ITS | Encounter Summary ---
Author Organization [facility] Address [address] [place] [address] Care Team Providers Care Wrapper And Preserver Name Role Phone Aron Godinez MD Primary Care Provider [phone] Reason for Visit * Reason Onset Date Comments refill request 05/10/2023 Encounter Details Date Type Department Care Team Description 05/10/2023 Refill Adult Medicine [address] [address] Aron Godinez MD [address] [place] [address] refill request Social History Tobacco Use Types Packs/Day Years [...] encounter Miscellaneous Notes * Telephone Encounter - Eun Silverman M.A. - 05/10/2023 3:22 PM EST Luz 12/14/22 no pended Lab Results Component Value Date HGBA1C 11.0 08/30/2022 MALBUR 234.0 12/14/2021 MALBCR 102.6 12/14/2021 CHOL 134 12/14/2021 LDL 84 12/14/2021 HDL 31 12/14/2021 TRIG 98 12/14/2021 GLU 333 08/30/2022 CREAT 0.71 08/30/2022 * Telephone Encounter - Monico Marks - 05/10/2023 3:19 PM EST [id number] - [address]Thx. * Telephone Encounter - Aurea Bhatia M.A. - 05/10/2023 12:04 PM EST Pharmacy? * Telephone Encounter - Carmina Seals - 05/10/2023 11:57 AM EST Patient would like script to be: E-PRESCRIBED/FAXED TO PHARMACY WHEN WAS THE PATIENT'S LAST APPOINTMENT IN ADULT MEDICINE? 12/28/2022 WHEN WAS THE LAST TIME THE PATIENT SAW THEIR PCP? 12/14/2022 Does patient have an upcoming appointment? N/A (THE MEDICATION REQUESTED IS ON THE MED LIST ABOVE) All of the medications requested were on the CURRENT MEDS list Did you check the Pharmacy information above?: YES Patient wants: 90 -day supply Is this a mail order prescription request ? NO If the refill is from a FAXED refill request what is the RX # listed on the fax? N/A Patients current insurance carrier is: Payor: [facility] SELF FUNDED / Plan: HMO $20 [place] 1500 / Product Type: HMO [id number] documented in this encounter Plan of Treatment Not on file documented as of this encounter Visit Diagnoses Diagnosis Type 2 diabetes mellitus with other diabetic kidney complication, with long-term current use of insulin (HCC) documented in this encounter Care Teams Wrapper And Preserver Relationship Specialty Start Date End Date Aron Godinez MD [address] [place] [address] PCP - General Internal Medicine 05/17/20 documented as of this encounter
--- OUTSIDE RECORDS SUMMARY | 2025-05-14 06:17 | XMS_ITS | Encounter Summary ---
Author Organization [facility] Address [address] [place] [address] Care Team Providers Care Cutlet Maker Pork Name Role Phone Millie Whitney MD Primary Care Provider Unav Aron Hernandez MD Primary Care Provider [phone] Reason for Visit * Reason Onset Date Comments REFERRAL 02/20/2017 Encounter Details Date Type Department Care Team Description 02/20/2017 Telephone Eye Services-[place] [address] [place] [address] Millie Whitney MD REFERRAL Social History Tobacco Use Types Packs/Day Years [...] encounter Miscellaneous Notes * Telephone Encounter - Deborah Lopes - 02/20/2017 1:10 PM EDT All attempts have been exhausted patient has not contacted the Eye department to schedule an eye exam Thank you documented in this encounter Plan of Treatment Not on file documented as of this encounter Visit Diagnoses Not on filedocumented in this encounter Care Teams Cutlet Maker Pork Relationship Specialty Start Date End Date Millie Whitney MD PCP - General 06/26/07 05/16/20 Aron Godinez MD [address] [place] [address] PCP - General Internal Medicine 05/17/20 documented as of this encounter
--- OUTSIDE RECORDS SUMMARY | 2025-05-14 06:17 | XMS_ITS | Encounter Summary ---
Author Organization [facility] Address [address] [place] [address] Care Team Providers Care Statistical Methods Teacher Name Role Phone Millie Whitney MD Primary Care Provider Unav Aron Hernandez MD Primary Care Provider [phone] Encounter Details Date Type Department Care Team Description 08/15/2017 SCAN Medical Records [address] [place] [id number] Abstract, Provider Social History Tobacco Use Types [...] on filedocumented in this encounter Care Teams Statistical Methods Teacher Relationship Specialty Start Date End Date Millie Whitney MD PCP - General 06/26/07 05/16/20 Aron Godinez MD [address] [place] [address] PCP - General Internal Medicine 05/17/20 documented as of this encounter
--- OUTSIDE RECORDS SUMMARY | 2025-05-14 06:17 | XMS_ITS | Encounter Summary ---
Author Organization [facility] Address [address] [place] [address] Care Team Providers Care Solar Photovoltaic Systems Engineer Name Role Phone Millie Whitney MD Primary Care Provider Unav chiable Aron Godinez MD Primary Care Provider Encounter Details Date Type Department Care Team Description 09/19/2013 Flux Tube Attendant Report Medical Records [address] [place] [address] Avtar Vogt Social History Tobacco Use Types Packs/Day Years [...] on filedocumented in this encounter Care Teams Solar Photovoltaic Systems Engineer Relationship Specialty Start Date End Date Millie Whitney MD PCP - General 06/26/07 05/16/20 Aron Godinez MD [address] [place] [address] PCP - General Internal Medicine 05/17/20 documented as of this encounter
--- OUTSIDE RECORDS SUMMARY | 2025-05-14 06:17 | XMS_ITS | Encounter Summary ---
Author Organization [facility] Address [address] [place] [address] Care Team Providers Care Demonstrator Sales Name Role Phone Aron Godinez MD Primary Care Provider [phone] Reason for Visit * Reason Comments E-prescribe Rx Request Encounter Details Date Type Department Care Team Description 11/09/2021 Refill Adult Medicine - [place] [address] [place] [address] Sandi Cummings PA-C [address] [place] [address] E-prescribe Rx Request Social History Tobacco Use Types Packs/Day Years Used Date Smoking Tobacco: Never Smokeless Tobacco: Never Alcohol Use Standard Drinks/Week Comments Yes 0 (1 standard drink = 0.6 oz pur e alcohol) occasional social Sex Assigned at Date Recorded Not on file Job Start Date Occupation Industry Not on file Not on file Not on file COVID-19 Exposure Response Date Recorded In the last 10 days, have yo u been in contact with someone who was confirmed or suspected to have Coronavirus/COVID-19? No / Unsure 11/01/2021 12:06 PM EDT documented as of this encounter Miscellaneous Notes * Telephone Encounter - Corrie Chung - 11/09/2021 4:19 PM EDT CONY: 09/08/2021 Pended appt 11/24/2021 Lab Results Component Value Date HGBA1C 12.2 09/13/2021 MALBUR 315.0 09/13/2021 MALBCR 143.1 09/13/2021 CHOL 194 09/13/2021 LDL 128 09/13/2021 HDL 42 09/13/2021 TRIG 122 09/13/2021 GLU 136 09/13/2021 CREAT 0.62 09/13/2021 * Telephone Encounter - Hattie Fernandez - 11/09/2021 4:16 PM EDT Patient would like script to be: E-PRESCRIBED/FAXED TO PHARMACY WHEN WAS THE PATIENT'S LAST APPOINTMENT IN ADULT MEDICINE? 09/08/21 WHEN WAS THE LAST TIME THE PATIENT SAW THEIR PCP? 10/11/20 Does patient have an upcoming appointment? Yes 11/24/21 (THE MEDICATION REQUESTED IS ON THE MED [...] N/A Patients current insurance carrier is: Payor: [facility] SELF FUNDED / Plan: HMO $20 [place] 1500 / Product Type: HMO [id number] documented in this encounter Plan of Treatment Not on file documented as of this encounter Visit Diagnoses Not on filedocumented in this encounter Care Teams Demonstrator Sales Relationship Specialty Start Date End Date Aron Godinez MD [address] [place] [address] PCP - General Internal Medicine 05/17/20 documented as of this encounter
--- OUTSIDE RECORDS SUMMARY | 2025-05-14 06:17 | XMS_ITS | Encounter Summary ---
Author Organization [facility] Address [address] [place] [address] Care Team Providers Care Personal Care Home Administrator Name Role Phone Millie Whitney MD Primary Care Provider Unav Aron Hernandez MD Primary Care Provider [phone] Reason for Visit * Reason Onset Date Comments Eye Exam 08/24/2010 Encounter Details Date Type Department Care Team Description 08/24/2010 Telephone Eye Services-[address] [address] Sabrina Colindres, OD Eye Exam Social History Tobacco Use Types Packs/Day Years Used Date Smoking Tobacco: Never Alcohol Use Standard Drinks/Week Comments No 0 (1 standard drink = 0.6 oz pur e alcohol) Sex Assigned at Date Recorded Not on file Job Start Date Occupation Industry Not on file Not on file Not on file documented as of this encounter Miscellaneous Notes * Telephone Encounter - Mary Smith - 08/24/2010 4:37 PM EST #1 Left msg for pt to schedule fu eyeexam dm/nuclear sclerosis around 08/22/11 documented in this encounter Plan of Treatment Not on file documented as of this encounter Visit Diagnoses Not on filedocumented in this encounter Care Teams Personal Care Home Administrator Relationship Specialty Start Date End Date Millie Whitney MD PCP - General 06/26/07 05/16/20 Aron Godinez MD [address] [place] [address] PCP - General Internal Medicine 05/17/20 documented as of this encounter
--- OUTSIDE RECORDS SUMMARY | 2025-05-14 06:17 | XMS_ITS | Encounter Summary ---
Author Organization [facility] Address [address] [place] [address] Care Team Providers Care Gang Plank Workman Name Role Phone Millie Whitney MD Primary Care Provider Unav chiable Aron Godinez MD Primary Care Provider [phone] Encounter Details Date Type Department Care Team Description 05/06/2015 Distribution Center Associate Report Medical Records [address] [place] [address] Rosalind Hackett Social History Tobacco Use Types [...] on filedocumented in this encounter Care Teams Gang Plank Workman Relationship Specialty Start Date End Date Millie Whitney MD PCP - General 06/26/07 05/16/20 Aron Godinez MD [address] [place] [address] PCP - General Internal Medicine 05/17/20 documented as of this encounter
--- OUTSIDE RECORDS SUMMARY | 2025-05-14 06:17 | XMS_ITS | Encounter Summary ---
Author Organization [facility] Address [address] [place] [address] Care Team Providers Care Parcel Post Weigher Name Role Phone Millie Whitney MD Primary Care Provider Unav Aron Hernandez MD Primary Care Provider [phone] Encounter Details Date Type Department Care Team Description 06/26/2012 Orders Only Adult Medicine [address] [address] Millie Whitney MD Social History Tobacco Use Types Packs/Day [...] on filedocumented in this encounter Care Teams Parcel Post Weigher Relationship Specialty Start Date End Date Millie Whitney MD PCP - General 06/26/07 05/16/20 Aron Godinez MD [address] [place] [address] PCP - General Internal Medicine 05/17/20 documented as of this encounter
--- OUTSIDE RECORDS SUMMARY | 2025-05-14 06:17 | XMS_ITS | Encounter Summary ---
Author Organization [facility] Address [address] [place] [address] Care Team Providers Care Machine Clipper Name Role Phone Aron Godinez MD Primary Care Provider [phone] Reason for Visit * Reason Comments E-prescribe Rx Request Encounter Details Date Type Department Care Team Description 11/09/2021 Refill Adult Medicine - [place] [address] [place] [address] Sandi Cummings PA-C [address] [place] [address] E-prescribe Rx Request Social History Tobacco Use [...] Telephone Encounter - Corrie Chung - 11/09/2021 1:36 PM EDT CONY: 09/08/2021 Pended appt 11/24/2021 Lab Results Component Value Date HGBA1C 12.2 09/13/2021 MALBUR 315.0 09/13/2021 MALBCR 143.1 09/13/2021 CHOL 194 09/13/2021 LDL 128 09/13/2021 HDL 42 09/13/2021 TRIG 122 09/13/2021 GLU 136 09/13/2021 CREAT 0.62 09/13/2021 * Telephone Encounter - Kayley Smith - 11/09/2021 10:59 AM EDT Patient would like script to [...] N/A Patients current insurance carrier is: Payor: [facility] SELF FUNDED / Plan: HMO $20 [place] 1500 / Product Type: HMO [id number] documented in this encounter Plan of Treatment Not on file documented as of this encounter Visit Diagnoses Not on filedocumented in this encounter Care Teams Machine Clipper Relationship Specialty Start Date End Date Aron Godinez MD [address] [place] [address] PCP - General Internal Medicine 05/17/20 documented as of this encounter
--- OUTSIDE RECORDS SUMMARY | 2025-05-14 06:17 | XMS_ITS | Encounter Summary ---
Author Organization [facility] Address [address] [place] [address] Care Team Providers Care Heavy Equipment Operator Name Role Phone Millie Whitney MD Primary Care Provider Unav chiable Aron Godinez MD Primary Care Provider Encounter Details Date Type Department Care Team Description 12/31/2012 Computer Operations Analyst Report Medical Records [address] [place] [address] Rosalind Hackett Social History Tobacco Use Types [...] on filedocumented in this encounter Care Teams Heavy Equipment Operator Relationship Specialty Start Date End Date Millie Whitney MD PCP - General 06/26/07 05/16/20 Aron Godinez MD [address] [place] [address] PCP - General Internal Medicine 05/17/20 documented as of this encounter
--- OUTSIDE RECORDS SUMMARY | 2025-05-14 06:17 | XMS_ITS | Clinical Summary ---
Author Organization [facility] Address [address] [place] [address] Care Team Providers Care Poured Pipe Maker Name Role Phone Aron Godinez MD Primary Care Provider [phone] Allergies Active Allergy Reactions Severity Noted Date Comments Fish High 07/14/2014 Hives and lip swelling Plantain High 07/14/2014 Bananas/plantains Hives and lip swelling Medications Medication Sig Dispensed Refills Start Date End Date Status IRON COMBINATIONS OR CAPS 1 tab every other day 0 Active fluticasone (FLONASE) 50 MCG/ACT nasal sprayIndications:Oswald al congestion with rhinorrhea 2 Sprays by Nasal route daily. 1 Bottle 0 06/26/2019 Active Continuous Blood Gluc Field Representatives Director (Instamouryle Jacike 2 [place]) Device 1 Device by Does not apply route daily. 1 Each 0 08/30/2022 Active ALBUTEROL SULFATE (ProAir HFA) 108 (90 Base) MCG/ACT Aero SolnIndications:Mild asthma exacerbation Inhale 2 Puffs into the lungs 4 times daily as needed for Cough or Wheezing (wheezing). 8.5 g 5 12/28/2022 Active Diclofenac Sodium 1 % GelIndications:Local ized swelling of finger of left hand Apply 1 g topically 3 times daily as needed (for finger pain/swelling). 300 g 1 12/28/2022 Active Taltz 80 MG/ML Solution Auto-injector 0 09/04/2023 Active metformin (GLUCOPHAGE-XR) 500 MG 24 hr tabletIndications:Ty pe 2 diabetes mellitus with other diabetic kidney complication, with long-term current use of insulin ([facility]) Tk 2 tabs bid with meals 180 Tablet 12/19/2023 Active Insulin Pen Needle (B-D ULTRAFINE III SHORT PEN) 31G X 8 MM MiscIndications:Type 2 diabetes mellitus with other diabetic kidney complication, with long-term current use of insulin (HCC) Use with insulin daily 200 Each 1 12/19/2023 Active Empagliflozin (Jardiance) 25 MG TabIndications:Type 2 diabetes mellitus with other diabetic kidney complication, with long-term current use of insulin ([facility]) Take 25 mg by mouth daily. 30 Tablet 12/19/2023 Active Continuous Glucose Sensor (FreeStyle Jackie 2 Sensor) MiscIndications:Type 2 diabetes mellitus with other diabetic kidney complication, with long-term current use of insulin ([facility]) 1 Device by Does not apply route every 14 days. 6 Each 2 12/19/2023 Active glucose blood test strips (FreeStyle Precision Kojo Test) stripIndications:Typ e 2 diabetes mellitus with other diabetic kidney complication, with long-term current use of insulin ([facility]) Use as needed to check blood glucose if Jackie sensor reading for blood sugar is below 65 or if there is question of Jackie CGM accurancy. 100 Each 12/19/2023 Active atorvastatin (LIPITOR) 80 MG tablet Take 1 Tablet by mouth daily for 180 days. 90 Tablet 01/28/2024 Active losartan (COZAAR) 25 MG tablet Take 0.5 Tablets by mouth daily. 45 Tablet 1 01/28/2024 Active Insulin Glargine (Lantus SoloStar) 100 UNIT/ML Solution Pen-injectorIndicati ons:Type 2 diabetes mellitus with stage 1 chronic kidney disease, with long-term current use of insulin ([facility]) Inject 68 Units into the skin every morning. 45 mL 03/04/2024 Active Semaglutide, 1 MG/DOSE, (Ozempic, 1 MG/DOSE,) 4 MG/3ML Solution Pen-injectorIndicati ons:Type 2 diabetes mellitus with stage 1 chronic kidney disease, with long-term current use of insulin ([facility]) Inject 1 mg into the skin every 7 days. 3 mL 03/04/2024 Active Active Problems Patient Care Coordination No te Formatting of this note is d ifferent from the original. Checking Your Blood Sugars Please check your blood sugars daily Your Blood Sugar Goals Pre Meal: 90-130 2 hours after meals: 110-160 Bedtime: 110-150 Use the Results Bring your glucometer to every appointment Write your fingerstick blood sugars down on a log sheet or record book. Bring them to your appointment Look for patterns in the numbers. The results help you and your provider make decisions about your diabetes treatment plan. Your Results and your Goals Your Result / Date of Completion Your Goal / How Often to Assess Component Value Date HGBA1C 6.7 09/05/2014 Less than 7%--- 2-4 times per year BP Readings from Last 1 Encounters: 08/28/14 138/70 Less than 130/80--- once per year Component Value Date LDL 149 06/01/2014 LDL less than 100--- once per year Component Value Date MALBUR 890.4 06/01/2014 Less than 30--- once per year Wt Readings from Last 1 Encounters: 08/28/14 190 lb 12.8 oz (86.546 kg) Your goal weight by next visit: 160 lbs --- reassess 2-4 times a year No health maintenance topics applied. Your Action Plan Check blood glucose as directed and write down all results. Contact me if you experience any barriers to care such as inability to purchase your medication, difficulty getting to your appointments or difficulty understanding your care plan When to Call your Healthcare Provider If your blood sugar falls below 70 and you do not know why or you become unconscious If you are sick and unable to take liquids because or nausea or vomiting If you have a fever over 101 If your blood sugar is 300 or higher on greater than 3 separate occasions during the same week If you are just unsure what to do Educational Resources Citizen Of [place] Diabetes Association (www.diabetes.org) Centers for Disease Control and Prevention (www.cdc.gov/diabetes) This care plan was created in collaboration with Andie Celeste on 12/03/2014 Problem Noted Date Gastroesophageal reflux disease 07/19/19 24 Type 2 diabetes mellitus with cataract 1 07/24/2019 Subacromial bursitis of left shoulder loida int 04/19/2020 Tendinitis of left rotator cuff 03/08/20 20 Adhesive capsulitis of left shoulder DM (diabetes mellitus), type 2 with erna l complications 11/27/2018 Last Assessment & Plan: Labs ordered to [...] endocrine to schedule follow-up. Avascular necrosis of lunate-right wrist 01/17/2016 Overview: Noted at [facility] 01/13/16, referred to Dr Poe(ortho) HTN (hypertension) 05/29/2014 Last Assessment & Plan: Continue losartan 25 [...] pressure control. Recheck in 3 months. Hyperlipidemia LDL goal < 100 12/23/2013 Overview: IMO update Last Assessment & Plan: Continue atorvastatin 40 mg daily. Discussed diet, exercise and weight loss. Labs ordered to be done in the next few days and further adjustment in treatment can be based on lab results. Plaque psoriasis 11/26/2012 Overview: Onset ~ 2009 UV light treatments Enbrel - did not help Humira - changed 2016 - also did not work Nuclear sclerosis 07/12/2009 Pterygium 07/12/2009 Severe obesity (BMI 35.0-39.9) with ninfa rbidity 05/19/2008 Microalbuminuria 07/25/2007 Allergic rhinitis, cause unspecified Iron deficiency anemia 03/23/2005 Other and unspecified ovarian cyst 03/23 Asthma 03/23/2005 Resolved Problems Problem Noted Date Resolved Date Allergy to nuts 09/01/2013 05/12/2019 Plantar fascial fibromatosis 03/23/200509/2008 Immunizations Name Administration Dates Next Due COVID-19 (Pfizer) 10/05/2020,09/13/2020 Influenza (> 6 Months) 04/06/2015,2013,04/28/2013,03/26,03/22/2011,03/04/2010,03/21/2009 ,04/10/2008,03/25/2007,04/16/2006,03/26,04/15/2004,04/28/2003 Influenza H1N1 Pandemic Flu Vaccine 06/08/2009 PPD-RBMG 12/23/2012 Pneumoccoccal(Adult) Polysac charide PPSV23 03/25/2007 TD (STATE SUPPLIED FOR ADULT S AND CHILDREN) 12/20/2004 TETANUS/DIPTHERIA (ADULT) 12/20/2004 Tdap 12/10/2012 Family History Medical History Relation Name Comments No Known Problems Aunt 1 cancer kidney Aunt 2 not sure No Known Problems Brother 1 No Known Problems Brother 2 No Known Problems Father No Known Problems Maternal Grandfather No Known Problems Maternal Grandmother Cataract Mother Asthma Other 1 Hypertension Other 1 Stroke Other 1 Strabismus Other 2 daughter No Known Problems Paternal Grandfather No Known Problems Paternal Grandmother No Known Problems Sister 1 No Known Problems Sister 2 No Known Problems Uncle 1 No Known Problems Uncle 2 Blindness Negative Hx CA Breast Negative Hx Glaucoma Negative Hx Macular Degeneration Negative Hx Relation Name Status Comments Aunt 1 Maternal aunt d ied of modula osia Aunt 2 Brother 1 Alive x4, healthy [...] uncle Uncle 2 Paternal Uncle. Prostate cancer, [place] Social History Tobacco Use Types Packs/Day Years Used Date Smoking Tobacco: Never Smokeless Tobacco: Never Tobacco Cessation:Counseling Given: Not Answered Alcohol Use Standard Drinks/Week Comments Yes 0 (1 standard drink = 0.6 oz pur e alcohol) occasional social Sex Assigned at Date Recorded Not on file Job Start Date Occupation Industry Not on file Not on file Not on file Last Filed Vital Signs Vital Sign Reading Time Taken Comments Blood Pressure 126/74 03/27/2024 2:09 PM EDT Pulse 90 03/27/2024 2:09 PM EDT Temperature 36.3 C (97.3 F) 03/04/2024 9:56 AM EDT Respiratory Rate 18 12/28/2022 9:09 AM EDT Oxygen Saturation 98% 03/04/2024 9:56 AM EDT Inhaled Oxygen Concentration - - Weight 76.7 kg (169 lb) 03/27/2024 2:09 PM EDT Height 154.9 cm (5' 1 ) 03/27/2024 2:09 PM EDT Body Mass Index 31.93 03/27/2024 2:09 PM EDT Plan of Treatment Health Maintenance Due Date Last Done Comments DEPRESSION SCREEN 1970 DTAP/TDAP/TD (2 - Td or Tdap) 12/10/2022 12/10/2012, 12/20/2004 FALL RISK ASSESSMENT 08/30/2023 PNEUMOCOCCAL VACCINE (2 - PCV) 08/30/2023 03/25/2007 DIABETES: ANNUAL EYE EXAM 04/25/20242022 (External Completion of test per patient (Patient reports normal results)), 12/31/2019, 07/30/2018, Additional history exists DIABETES: BLOOD SUGAR CONTRO L TEST (HGBA1C) 05/22/2024 02/20/2024, 10/26/2023, 07/19/2023, Additional history exists BMI CHECK/ADVISE 06/25/2024 03/27/2024, , 07/19/2023, Additional history exists COLON CANCER SCREENING 07/14/2024 5 (Completed), 07/14/2014, 01/29/2009 DIABETES: ANNUAL FOOT EXAM 07/19/202407/19, 03/31/2019, 03/25/2018, Additional history exists DIABETES: ANNUAL URINE PROTE IN TEST (MICROALBUMIN) 07/19/2024 07/19/2023, 12/14/2021, 09/13/2021, Additional history exists MAMMOGRAM 11/04/2024 11/05/2023, 10/24, 01/07/2016, Additional history exists DIABETES/HEART DISEASE: MERCEDEZ AL CHOLESTEROL (LDL) 02/19/2025 02/20/2024, 10/26/2023, 07/19/2023, Additional history exists Covid-19 Vaccine (2022-07 4 season) 2025 10/05/2020, 09/13/2020 INFLUENZA (#1) 2025 06/29/2017 (Refu sed), 04/06/2015, 05/05/2014, Additional history exists BONE DENSITY SCREENING 11/04/2025 11/05/2023, 2008 HEPATITIS C SCREENING Completed 12/10/2012 SHINGLES VACCINE Discontinued Care Teams Poured Pipe Maker Relationship Specialty Start Date End Date Aron Godinez MD [address] [place] [address] PCP - General Internal Medicine 05/17/20
--- OUTSIDE RECORDS SUMMARY | 2025-05-14 06:17 | XMS_ITS | Encounter Summary ---
Author Organization [facility] Address [address] [place] [address] Care Team Providers Care Dimensional Inspector Name Role Phone Millie Whitney MD Primary Care Provider Aron Venegas MD Primary Care Provider [phone] Encounter Details Date Type Department Care Team Description 02/27/2013 Orders Only Adult Medicine [facility] [address] [place] [address] Millie Whitney MD DM Renal Manif Type II (Primary Dx) Social History Tobacco Use Types Packs/Day Years [...] on file documented as of this encounter Results * (ABNORMAL) LIPID PROFILE (03/24/2013 4:19 PM EDT) Cholesterol 227(H) 0 - 200 mg/dL 03/24/2013 7:04 PM EDT [facility] TRIGLYCERIDES 180(H) 0 - 150 mg/dL 03/24/2013 7:01 PM EDT [facility] HDL CHOLESTEROL 37(L) >40 mg/dL 3 7:05 PM EDT [facility] LDL CALCULATED 154(H) 0 - 100 mg/dL 03/24/2013 7:05 PM [facility] TC-HDLC RATIO 6(H) 0.0 - 4.4 mg/dL 03/24/2013 7:05 PM [facility] 03/24/2013 4:19 PM EDT 03/24/2013 4:19 PM EDT Millie Whitney MD LAB Performing Organization Address City/State/[facility] Co de Phone Number [facility] [address] * (ABNORMAL) BASIC METABOLIC PANEL (03/24/2013 4:19 PM EDT) [facility] Signature GLUCOSE 90 70 - 100 mg/dL 03/24/2013 7:04 PM [facility] Comment: Reference range applicable to fasting specimens only Based on recommendations from the ADA and AACE, the fasting glucose reference range has been changed to 70-100 mg/dL. This change is effective November 08, 2009 BUN 11 5 - 25 mg/dL 03/24/2013 6:58 PM [facility] CREAT 0.5(L) 0.7 - 1.5 mg/dL 03/24/2013 7:01 PM [facility] GFR > 60 >60 03/24/2013 7:20 PM [facility] Comment: If patient is -[place], multiply result by 1.21 Chronic Kidney Disease: < 60 ml/min/1.73 square meters Kidney Failure: < 15 ml/min/1.73 square meters Sodium 141 133 - 145 mEq/L 03/24/2013 6:35 PM [facility] Potassium 4.2 3.5 - 5.2 mEq/L 03/24/2013 6:35 PM [facility] Chloride 103 96 - 108 mEq/L 03/24/2013 6:35 PM [facility] CO2 28.3 21.0 - 32.0 mEq/L 03/24/2013 7:01 PM [facility] CALCIUM 8.7 8.5 - 10.5 mg/dL 03/24/2013 6:59 PM [facility] 03/24/2013 4:19 PM EDT 03/24/2013 4:19 PM EDT Millie Whitney MD LAB Performing Organization Address [facility] Co de Phone Number [address] * (ABNORMAL) HEMOGLOBIN A1C (03/24/2013 4:19 PM EDT) Glycosylated Hemoglobin A1C 6.3(H) 4.0 - 6.0 % 03/25/2013 10:05 AM EDT [facility] Comment: HbA1C VALUES MAY NOT ACCURATELY REFLECT MEAN BLOOD GLUCOSE IN PATIENTS WITH HEMOGLOBIN VARIANTS SUCH HbF, HbS. 03/24/2013 4:19 PM EDT 03/24/2013 4:19 PM EDT Millie Whitney MD LAB Performing Organization Address [facility] de Phone Number [address] documented in this encounter Visit Diagnoses Diagnosis DM Renal Manif Type II- Primary Type II or unspecified type diabetes mellitus with renal manifestations, not stated as uncontrolled documented in this encounter Care Teams Dimensional Inspector Relationship Specialty Start Date End Date Millie Whitney MD PCP - General 06/26/07 05/16/20 Aron Godinez MD [address] [place] [address] PCP - General Internal Medicine 05/17/20 documented as of this encounter
--- OUTSIDE RECORDS SUMMARY | 2025-05-14 06:17 | XMS_ITS | Encounter Summary ---
Author Organization [facility] Address [address] [place] [address] Care Team Providers Care Photogrammetrist Name Role Phone Millie Whitney MD Primary Care Provider Unav chiable Aron Godinez MD Primary Care Provider [phone] Encounter Details Date Type Department Care Team Description 11/30/2016 Slurry Blender Report Medical Records [address] [place] [address] Rosalind Hackett Social History Tobacco Use Types [...] on filedocumented in this encounter Care Teams Photogrammetrist Relationship Specialty Start Date End Date Millie Whitney MD PCP - General 06/26/07 05/16/20 Aron Godinez MD [address] [place] [address] PCP - General Internal Medicine 05/17/20 documented as of this encounter
--- OUTSIDE RECORDS SUMMARY | 2025-05-14 06:17 | XMS_ITS | Encounter Summary ---
Author Organization [facility] Address [address] [place] [address] Care Team Providers Care Men'S And Boys' Clothing Salesperson Name Role Phone Millie Whitney MD Primary Care Provider Unav Aron Hernandez MD Primary Care Provider [phone] Encounter Details Date Type Department Care Team Description 08/06/2016 Release of Information Medical Records [address] [place] [id number] Abstract, Provider Social History Tobacco Use Types [...] on filedocumented in this encounter Care Teams Men'S And Boys' Clothing Salesperson Relationship Specialty Start Date End Date Millie Whitney MD PCP - General 06/26/07 05/16/20 Aron Godinez MD [address] [place] [address] PCP - General Internal Medicine 05/17/20 documented as of this encounter
--- OUTSIDE RECORDS SUMMARY | 2025-05-14 06:17 | XMS_ITS | Encounter Summary ---
Author Organization [facility] Address [address] [place] [address] Care Team Providers Care Fur Ironer Name Role Phone Millie Whitney MD Primary Care Provider Unav ailable Aron Godinez MD Primary Care Provider Encounter Details Date Type Department Care Team Description 10/23/2017 Bouffant Curtain Machine Tender Report Medical Records [address] [place] [address] Lina Pena [address] [place] [address] Social History Tobacco Use Types Packs/Day Years [...] on filedocumented in this encounter Care Teams Fur Ironer Relationship Specialty Start Date End Date Millie Whitney MD PCP - General 06/26/07 05/16/20 Aron Godinez MD [address] [place] [address] PCP - General Internal Medicine 05/17/20 documented as of this encounter
--- OUTSIDE RECORDS SUMMARY | 2025-05-14 06:17 | XMS_ITS | Encounter Summary ---
Author Organization [facility] Address [address] [place] [address] Care Team Providers Care Capacitor Repairer Name Role Phone Millie Whitney MD Primary Care Provider Unav ailable Aron Godinez MD Primary Care Provider [phone] Encounter Details Date Type Department Care Team Description 06/01/2017 Motor Hotel Manager Report Medical Records [address] [place] [address] Rey Trent MD Social History Tobacco Use Types Packs/Day [...] on filedocumented in this encounter Care Teams Capacitor Repairer Relationship Specialty Start Date End Date Millie Whitney MD PCP - General 06/26/07 05/16/20 Aron Godinez MD [address] [place] [address] PCP - General Internal Medicine 05/17/20 documented as of this encounter
--- OUTSIDE RECORDS SUMMARY | 2025-05-14 06:17 | XMS_ITS | Encounter Summary ---
Author Organization [facility] Address [address] [place] [address] Care Team Providers Care Administrative Liaison Name Role Phone Aron Godinez MD Primary Care Provider [phone] Encounter Details Date Type Department Care Team Description 10/02/2022 Release of Information Medical Records [address] [place] [address] Abstract, Provider Social History Tobacco Use Types [...] suspected to have Coronavirus/COVID-19? No / Unsure 09/20/2022 3:15 PM EDT documented as of this encounter Plan of Treatment Not on file documented as of this encounter Visit Diagnoses Not on filedocumented in this encounter Care Teams Administrative Liaison Relationship Specialty Start Date End Date Aron Godinez MD [address] [place] [address] PCP - General Internal Medicine 05/17/20 documented as of this encounter
--- OUTSIDE RECORDS SUMMARY | 2025-05-14 06:17 | XMS_ITS | Encounter Summary ---
Author Organization [facility] Address [address] [place] [address] Care Team Providers Care Missile Inspector Preflight Name Role Phone Aron Godinez MD Primary Care Provider [phone] Reason for Visit * Reason Onset Date Comments Prior Authorization 01/01/2024 Encounter Details Date Type Department Care Team Description 01/01/2024 Telephone Endocrinology - [place] [address] [place] [address] Sandi Cummings PA-C [address] [place] [address] Prior Authorization Social History Tobacco Use Types Packs/Day Years [...] encounter Miscellaneous Notes * Telephone Encounter - Arabella Crespo M.A. - 01/04/2024 4:53 PM EDT Prior authorization for the ozempic was approved Approved from 01/04/24 until 01/03/27 Approval faxed to [facility] at [phone] * Telephone Encounter - Arabella Crespo M.A. - 01/04/2024 9:35 AM EDT Prior authorization for the ozempic was completed today on cm Dx code E11.29 DM ( diabetes Mellitus ) Type 2 with renal complications Trials Trulicity Jardiance Lantus Insulin lispro Victoza Metformin * Telephone Encounter - Teressa Thacker - 01/01/2024 11:06 AM EDT Prior Authorization for Medication-do not complete and send this encounter unless you have the fax from the pharmacy. Is this a Cover My Meds request: Petrey of Medication Ozempic Dose of Medication 0.25 or 0.5 MG What is the RX # from the faxed refill? [id number] How does patient take this med? Inject 0.5 mg into the skin every 7 days. What Pharmacy did the fax come from: [facility] fax #: [phone] documented in this encounter Plan of Treatment Not on file documented as of this encounter Visit Diagnoses Not on filedocumented in this encounter Care Teams Missile Inspector Preflight Relationship Specialty Start Date End Date Aron Godinez MD [address] [place] [address] PCP - General Internal Medicine 05/17/20 documented as of this encounter
--- OUTSIDE RECORDS SUMMARY | 2025-05-14 06:17 | XMS_ITS | Encounter Summary ---
Author Organization [facility] Address [address] [place] [address] Care Team Providers Care Pharmacist Intern Name Role Phone Millie Whitney MD Primary Care Provider Aron Venegas MD Primary Care Provider [phone] Encounter Details Date Type Department Care Team Description 05/16/2019 Telephone Allergy [place] [address] [place] [phone] Amy Nickerson PA-C Social History Tobacco Use Types Packs/Day Years [...] encounter Miscellaneous Notes * Telephone Encounter - Meron Adkins - 05/28/2019 11:26 AM EST FYI - no response from patient. Mailed letter, unable to reach * Telephone Encounter - Meron Adkins - 05/26/2019 4:01 PM EST Second attempt, called patient and left message to call back for challenge appointment * Telephone Encounter - Meron Adkins - 05/20/2019 1:47 PM EST Called patient left message to call back for appointment * Telephone Encounter - Elida Rose LPN - 05/20/2019 8:42 AM EST Patient notified. She is interested in coming in for a red fish challenge. Instructions mailed. BSR- please set up a challenge appointment with Andie. * Telephone Encounter - Elida Rose LPN - 05/19/2019 1:17 PM EST I called and left a message on the machine/voicemail, asking them to call us back. Phone number provided. * Telephone Encounter - Anabella Angeles M.A. - 05/16/2019 10:29 AM EST Called patient no answer left message to call back for lab results. * Telephone Encounter - Anabella Angeles M.A. - 05/16/2019 10:29 AM EST ----- Message from Amy Nickerson PA-C sent at 05/16/2019 8:26 AM EST ----- Please notify the patient that her blood tests are negative. Continue strict avoidance of fish and banana at this time since she has a history of positive food challenges to white fish and banana despite negative testing. If the patient wishes, we could try a food challenge in the office to red fish such as salmon or tuna). If she wants to proceed with this I will mail instructions. Thank you! FYI only Dr. Beckham documented in this encounter Plan of Treatment Not on file documented as of this encounter Visit Diagnoses Not on filedocumented in this encounter Care Teams Pharmacist Intern Relationship Specialty Start Date End Date Millie Whitney MD PCP - General 06/26/07 05/16/20 Aron Godinez MD [address] [place] [address] PCP - General Internal Medicine 05/17/20 documented as of this encounter
--- OUTSIDE RECORDS SUMMARY | 2025-05-14 06:17 | XMS_ITS | Encounter Summary ---
Author Organization [facility] Address [address] [place] [address] Care Team Providers Care Emblem Fuser Tender Name Role Phone Millie Whitney MD Primary Care Provider Unav Aron Hernandez MD Primary Care Provider [phone] Reason for Visit * Reason Onset Date Comments lab test 12/03/2012 Encounter Details Date Type Department Care Team Description 12/03/2012 Telephone Adult Medicine [address] [address] Millie Whitney MD lab test Social History Tobacco Use Types Packs/Day Years [...] on filedocumented in this encounter Care Teams Emblem Fuser Tender Relationship Specialty Start Date End Date Millie Whitney MD PCP - General 06/26/07 05/16/20 Aron Godinez MD [address] [place] [address] PCP - General Internal Medicine 05/17/20 documented as of this encounter
--- OUTSIDE RECORDS SUMMARY | 2025-05-14 06:17 | XMS_ITS | Encounter Summary ---
Author Organization [facility] Address [address] [place] [address] Care Team Providers Care Department Head Name Role Phone Aron Godinez MD Primary Care Provider [phone] Reason for Visit * Reason Onset Date Comments medication problems 12/31/2023 Encounter Details Date Type Department Care Team Description 12/31/2023 Telephone Endocrinology - [address] [address] Sandi Cummings PA-C [address] [place] [id number] medication problems Social History Tobacco Use Types Packs/Day Years [...] Telephone Encounter - Sandi Cummings PA-C - 01/01/2024 9:23 AM EDT Sent again * Telephone Encounter - Nan Aguila - 12/31/2023 11:52 AM EDT Who is calling? The patient Name of the medication [id number] What is the specific problem or interaction? WE SENT AN RX TO THE PHARMACY ON 12/19/23 WITH 5 REFILLS TO THE PHARMACY AND THEY SAY THEY NEVER RECIVED IT CAN WE RESND IT TO [phone] If the patient is having a problem with taking the med - how long has the problem been going on? N/A documented in this encounter Plan of Treatment Not on file documented as of this encounter Visit Diagnoses Diagnosis Type 2 diabetes mellitus with other diabetic kidney complication, with long-term current use of insulin (HCC) documented in this encounter Care Teams Department Head Relationship Specialty Start Date End Date Aron Godinez MD [address] [place] [address] PCP - General Internal Medicine 05/17/20 documented as of this encounter
--- OUTSIDE RECORDS SUMMARY | 2025-05-14 06:17 | XMS_ITS | Encounter Summary ---
Author Organization [facility] Address [address] [place] [address] Care Team Providers Care Copywriting Intern Name Role Phone Millie Whitney MD Primary Care Provider Unav rAon Hernandez MD Primary Care Provider [phone] Encounter Details Date Type Department Care Team Description 07/01/2015 Grounds Supervisor Report Medical Records [address] [place] [address] Rosalind Hackett Social History Tobacco Use Types [...] on filedocumented in this encounter Care Teams Copywriting Intern Relationship Specialty Start Date End Date Millie Whitney MD PCP - General 06/26/07 05/16/20 Aron Godinez MD [address] [place] [address] PCP - General Internal Medicine 05/17/20 documented as of this encounter
--- OUTSIDE RECORDS SUMMARY | 2025-05-14 06:17 | XMS_ITS | Encounter Summary ---
Author Organization [facility] Address [address] [place] [address] Care Team Providers Care Registered Nurse Hh Case Manager Name Role Phone Aron Godinez MD Primary Care Provider [phone] Encounter Details Date Type Department Care Team Description 12/16/2020 Release of Information Medical Records [address] [place] [id number] Abstract, Provider Social History Tobacco Use Types [...] have Coronavirus / COVID-19? No / Unsure 11/30/2020 3:22 PM EDT documented as of this encounter Plan of Treatment Not on file documented as of this encounter Visit Diagnoses Not on filedocumented in this encounter Care Teams Registered Nurse Hh Case Manager Relationship Specialty Start Date End Date Aron Godinez MD [address] [place] [address] PCP - General Internal Medicine 05/17/20 documented as of this encounter
== END 2025-05-14 06:15 | disposition home or self-care (01) ==
LOC: CF 06:14
PROVIDERS: Visit Provider Internal Medicine
DX: M17.11 Unilateral primary osteoarthritis, right knee (principal)
CPT/HCPCS: 64454; J2795

== ENCOUNTER 2025-05-14 09:13 | Outpatient (AMB) | payer MEDICARE, OTHER, SELFPAY ==
[2025-05-14 09:19] VITALS: BP 130/72; PULSE 74; RESP 15; O2SAT 96
--- NOTE | 2025-05-14 09:19 | MHC.OFFVIS ---
Vital Signs 05/14/25 09:19 BP 130/72 Blood Pressure Location Lt brachial Position Sitting Respiration 15 Pulse 74 Pulse Source Pulse Oximeter Pulse Oximetry (%) 96 Oxygen Delivery Method Room Air Intake Visit Reasons: Right DX GNB Parking Enforcement Officer Required: No Allergies banana Allergy (Unknown, Verified 05/14/25 09:20) Hives Fish Containing Products Allergy (Unknown, Verified 05/14/25 09:20) Hives plantain Allergy (Unknown, Verified 05/14/25 09:20) Hives Medication List - Last Reconciled 05/14/25 by Keily Wagner LPN acetaminophen ER (Tylenol 8 Hour) 650 mg PO Q12H albuterol sulfate 90 mcg/actuation 2 puffs inhalation Q6H PRN atorvastatin (Lipitor) 80 mg PO DAILY diclofenac sodium 1% (Arthritis Pain (diclofenac)) 2 grams topical QID empagliflozin (Jardiance) 25 mg PO DAILY fluticasone propionate 50 mcg/actuation (Flonase Allergy Relief) 2 sprays intranasal DAILY insulin degludec 20 units subcut BEDTIME lidocaine 5% 1 patch topical DAILY 30 days losartan 25 mg PO DAILY metformin 2,000 mg PO DAILY HPI HPI Right DX GNB: Details: Patient presents for scheduled procedure. Denies any recent cough, cold, infection, fever or other significant changes in medical history since last office visit. [facility] Medical History (Updated 03/23/25 @ 10:05 by CAMPOS Qiu) Unspecified ovarian cyst, unspecified side Tendinitis of left rotator cuff Subacromial bursitis of left shoulder joint Pterygium Microalbuminuria Plaque psoriasis Nuclear sclerosis Iron deficiency anemia Hyperlipidemia Hypertension GERD (gastroesophageal reflux disease) DM (diabetes mellitus), type 2 with renal complications Asthma Arthropathic psoriasis, unspecified Allergic rhinitis Adhesive capsulitis of left shoulder Social History (Updated 03/20/25 @ 09:45 by Montse Mckinley) Alcohol intake: never Patient Tobacco Use Status: Never used Tobacco Physical Exam Vital Signs: Last Vital Signs Pulse 74 05/14/25 09:19 Resp 15 05/14/25 09:19 BP 130/72 05/14/25 09:19 Pulse Ox 96 05/14/25 09:19 Oxygen Delivery Method Room Air 05/14/25 09:19 Office Procedures Nerve Block Details: Superior medial, superior lateral, and inferior medial genicular nerves block, Right - Ultrasound Guided After obtaining written consent, pre-procedure blood pressure and heart rate were stable and recorded in the nursing record. The patient was placed supine on the table. The area overlying the peripheral nerves was widely prepped with chloraprep and allowed to dry. Using ultrasound, the appropriate landmarks were identified. A 25 gauge 1.5 inch hypodermic needle was advanced under ultrasound guidance to the appropriate landmark of each peripheral nerve. Aspiration was negative for heme and synovial fluid. 2 cc of ropivacaine 0.5% was injected around each targeted nerve. The needle was removed, skin cleansed and a sterile bandage was applied. The patient tolerated the procedure well and no complications were encountered. Following the procedure the patient's vital signs were stable. The patient was discharged home in good condition with post-procedural instructions. Time Out: Immediately prior to the procedure, the following was verbally confirmed that there is a signed consent form and that the correct patient, planned procedure, site and side are consistent with documentation and that necessary equipment and/or blood products are available prior to the start of the case. Complications: none EBL: <5 cc [id number] Nerve Block Procedure code (CPT) selection complete Assessment & Plan Assessment & Plan (1) Osteoarthritis of right knee: Code(s): M17.11 - Unilateral primary osteoarthritis, right knee Category: Medical (2) Right knee pain: Code(s): M25.561 - Pain in right knee Category: Medical Plan Patient is status post Right knee genicular nerve blocks. Patient tolerated procedure well and was discharged home in stable condition with discharge instructions. All questions were answered. We will follow-up via telephone or in clinic to assess response to therapy. A follow-up appointment was made during today's visit. Orders: Orders AMB Nerve Block Today Garrick Jerez MD M17.11 - Unilateral primary osteoarthritis, right knee, M25.561 - Pain in right knee FL guidance in treatment room Today Millie Holcomb APRN, [employer]INCIP[employer] M17.11 - Unilateral primary osteoarthritis, right knee Coding Level of Care Code Procedure Only Diagnoses Osteoarthritis of right knee M17.11 Right knee pain M25.561 CPT Codes Nerve Block - Nerve Block: [id number] Nerve Block ([id number])
== END 2025-05-14 09:56 | disposition home or self-care (01) ==
LOC: HO.PMCPRC 09:13
PROVIDERS: PCP Internal Medicine; Visit Provider Internal Medicine
DX: M17.11 Unilateral primary osteoarthritis, right knee (principal); M25.561 Pain in right knee
CPT/HCPCS: 64454

== ENCOUNTER 2025-05-18 09:09 | Outpatient (AMB) | payer MEDICARE, OTHER, SELFPAY ==
--- NOTE | 2025-05-18 09:17 | MHC.OFFVIS ---
Vital Signs 05/18/25 09:23 Height 5 ft 1 in Weight 167 lb 6 oz BMI 31.6 BP 144/78 H Blood Pressure Location Rt brachial Position Sitting Pulse 91 Pulse Source Pulse Oximeter Pulse Oximetry (%) 98 Oxygen Delivery Method Room Air Intake Visit Reasons: S/P Right DX GNB 05/14/25 Intake Note: Pain today 0/10 Administration Manager Required: No Accompanied by: Self / Same As Patient Allergies banana Allergy (Unknown, Verified 05/18/25 09:23) Hives Fish Containing Products Allergy (Unknown, Verified 05/18/25 09:23) Hives plantain Allergy (Unknown, Verified 05/18/25 09:23) Hives HPI Comments Details: The patient is a 64 year old individual presenting for a follow-up visit after a right genicular nerve block for chronic knee pain. The patient underwent a diagnostic right genicular nerve block on 05/14/[address] Jerez, four days prior, and reports having no right knee pain since the procedure, with improved walking and sleep. She is interested to proceed with genicular RFA for a longer term pain relief. The patient also has a history of type 2 diabetes with a previously noted A1c above 10. The patient reports working on blood sugar control, noting emotional eating of candy when upset. The patient has made dietary modifications, including cooking more at home and reducing soda intake from 2-3 bottles per day to about one on weekends and tries to replace soda with seltzer. Regarding other musculoskeletal issues, the patient reports bilateral shoulder pain. The left shoulder is now more bothersome than the right, and pain is exacerbated by sudden stretching in the morning. The patient has a history of psoriasis, for which the patient uses an injection. The most recent dose was delayed due to the recent knee procedure. Past Procedures: 05/14/25: Right diagnostic GNB-100% pain relief x4 days PRIOR: The patient is a 64-year-old female presenting with joint pain, particularly in the hands, fingers, toes, shoulders, and knees. The joint pain began approximately one month ago, leading to an emergency room visit due to severe discomfort and sleep disturbances. The patient has a history of arthritis associated with psoriasis, which initially affected her knees and has now progressed to other joints. The patient also has a history of uncontrolled type 2 diabetes mellitus, with a recent A1c level of 10, attributed to personal stressors and lack of self-care. She reports not adhering to her diabetes management plan, which has contributed to her current health status. The patient experiences shoulder pain, particularly in both shoulders, with the right side being more painful. The pain is exacerbated by sleeping on her side and is associated with limited range of motion, especially during overhead activities. She has a history of subacromial bursitis and adhesive capsulitis in the left shoulder, which has been previously managed with injections. The patient reports knee pain, particularly in the right knee, which is aggravated by walking and climbing stairs. She has received knee injections in the past, which provided temporary relief. The pain is described as constant, sharp, and achy, with a severity of 8/10 in the morning, improving to 5/10 by the afternoon. The patient denies smoking, alcohol, and marijuana use, and has a supportive family environment. She engages in some physical activity with her grandchildren, who encourage her to exercise. - Onset: Pain began approximately one month ago. - Quality: Described as constant, sharp, dull, sore, hurting, achy, and heavy. - Severity: Rated as 8/10 in the morning, improving to 5/10 by the afternoon. - Location: Affects hands, fingers, toes, shoulders, and knees, with the right shoulder and right knee being more painful. - Exacerbating factors: Pain worsens with sleeping on the side, walking, climbing stairs, and heat exposure. - Relieving factors: Cold exposure and movement improve pain. - Interference: Pain interferes with sleep, mobility, and daily activities. - Affect: Pain impacts sleep and daily activities, causing fatigue and difficulty with mobility. - Analgesia: Currently using Tylenol Arthritis; pain rated as 8/10 in the morning, improving to 5/10 by the afternoon. - Adverse Effects: No adverse effects from current pain management reported. - Activities of Daily Living: Pain affects ability to sleep, walk, and perform overhead activities. - Aberrant Drug Related Behaviors: No signs of medication misuse or abuse reported. [facility] Medical History Unspecified ovarian cyst, unspecified side Tendinitis of left rotator cuff Subacromial bursitis of left shoulder joint Pterygium Microalbuminuria Plaque psoriasis Nuclear sclerosis Iron deficiency anemia Hyperlipidemia Hypertension GERD (gastroesophageal reflux disease) DM (diabetes mellitus), type 2 with renal complications Asthma Arthropathic psoriasis, unspecified Allergic rhinitis Adhesive capsulitis of left shoulder Social History Alcohol intake: never Patient Tobacco Use Status: Never used Tobacco Review of Systems Const All systems reviewed & are unremarkable except as noted in HPI and below Physical Exam Vital Signs: Last Vital Signs Pulse 91 05/18/25 09:23 BP 144/78 H 05/18/25 09:23 Pulse Ox 98 05/18/25 09:23 Oxygen Delivery Method Room Air 05/18/25 09:23 BMI result Body Mass Index 31.6 General: Appears afebrile. Alert and oriented. Mood and affect appropriate. Follows and participates in conversation appropriately. Respiratory effort is unlabored. No cough. Able to transition from sit to stand unassisted. Ambulates with bilaterally normal heel strike and toe off. Skin Rashes: rashes noted (lower extremities psoriatic rash with scaly patches) Extrem General: Yes capillary refill normal, Yes no clubbing, cyanosis or edema and Yes no calf tenderness Right upper extremity: shoulder/upper arm (Limited ROM due to pain) Details: normal to inspection, tenderness Location: of the A-C joint and over the subacromial bursa and crepitus; no swelling and no unusual warmth Right lower extremity: knee Details: normal to inspection, tenderness (very mild TTP since injection) Location: of the medial joint line and of the lateral joint line, normal ROM and crepitus; no swelling, no ecchymosis, no deformity and no unusual warmth Results Reviewed Results Reviewed: XR KNEE, RIGHT 03/20/25 CLINICAL INFORMATION: M25.561 - Pain in right knee FINDINGS: No fracture, dislocation, or suspicious bone lesion. There is grossly normal alignment. Tricompartmental osteoarthritis, moderate in the medial compartment, with mild to moderate changes in the lateral and patellofemoral compartments. There is spurring of the tibial spines. Patellofemoral alignment demonstrates mild lateral tilt. There are patellofemoral marginal osteophytes. There is a moderate suprapatellar joint effusion. Soft tissues demonstrate vascular calcifications but are otherwise normal. IMPRESSION: 1. Moderate tricompartmental osteoarthritis worst in the medial compartment. 2. Moderate suprapatellar joint effusion. XR SHOULDER, bilateral CLINICAL INFORMATION: M25.511 - Pain in right shoulder FINDINGS: Right shoulder: Medium-sized marginal osteophytes are present involving humeral head. There is a 1 cm central osteophyte involving superior lateral humeral head. Marginal osteophytes are small involving glenoid. There is mild narrowing of the glenohumeral joint. AC joint is intact and unremarkable. No fracture is identified. Left shoulder: There is mild AC joint arthropathy with small marginal osteophytes. There is no AC joint separation. Glenohumeral joint is unremarkable. No fractures are identified. IMPRESSION: Moderate degenerative change is present in the right shoulder joint. There is mild left AC joint arthropathy. Assessment & Plan Assessment & Plan (1) Bilateral shoulder pain: Code(s): M25.511 - Pain in right shoulder; M25.512 - Pain in left shoulder Category: Medical (2) Right knee pain: Code(s): M25.561 - Pain in right knee Category: Medical (3) Osteoarthritis of right knee: Code(s): M17.11 - Unilateral primary osteoarthritis, right knee Category: Medical (4) Osteoarthritis of right shoulder: Code(s): M19.011 - Primary osteoarthritis, right shoulder Category: Medical (5) Tendinitis of left rotator cuff: Code(s): M75.82 - Other shoulder lesions, left shoulder Category: Medical Plan Given the positive response to the diagnostic right genicular nerve block with complete pain relief, the patient will be scheduled for a right genicular radiofrequency ablation (RFA) with local and fluoroscopy. Patient will be provided analgesia during procedure with oral Ativan and pain medication. This procedure is expected to provide pain relief for 12 months or longer. For the patient's bilateral shoulder pain, steroid injections will be deferred until the A1c is better controlled, with a target of around 7.5. The patient is scheduled for physical therapy on July 07. Regarding diabetes management, the patient will continue with dietary modifications and is encouraged to be mindful of sugar intake, especially with the upcoming holidays. The patient has a follow-up appointment with the PCP on May 26 to recheck A1C level. All questions and concerns have been answered and patient agreed with the treatment plan. Follow up after genicular RFA and sooner as needed. Patient was informed and verbally consented to the use of an ambient scribe for clinic note documentation during this visit. Coding Level of Care Code Est Pt Level 3 (43684) Diagnoses Bilateral shoulder pain M25.511; M25.512 Right knee pain M25.561 Osteoarthritis of right knee M17.11 Osteoarthritis of right shoulder M19.011 Tendinitis of left rotator cuff M75.82
[2025-05-18 09:23] VITALS: BP 144/78; PULSE 91; O2SAT 98; BMI 31.6
--- OUTSIDE RECORDS SUMMARY | 2025-05-18 10:04 | XMS_ITS | Encounter Summary ---
Author Organization [facility] Address [address] [place] [address] Care Team Providers Care Senior Private Client Advisor Name Role Phone Aron Godinez MD Primary Care Provider [phone] Reason for Visit * Reason Onset Date Comments APPOINTMENT 07/16/2023 Lmtcb on , ple ase transfer call to ext: [phone] Thanks. JESUS VENEGAS Encounter Details Date Type Department Care Team Description 07/16/2023 Telephone Adult Medicine [address] [address] Aron Godinez MD [address] [place] [phone] APPOINTMENT (Cong on , please transfer call to ext: [phone] Thanks. JESUS VENEGAS/) Social History Tobacco Use [...] on filedocumented in this encounter Care Teams Senior Private Client Advisor Relationship Specialty Start Date End Date Aron Godinez MD [address] [place] [address] PCP - General Internal Medicine 05/17/20 documented as of this encounter
--- OUTSIDE RECORDS SUMMARY | 2025-05-18 10:04 | XMS_ITS | Encounter Summary ---
Author Organization [facility] Address [address] [place] [address] Care Team Providers Care Facility Maintenance Technician Name Role Phone Millie Whitney MD Primary Care Provider Unav Aron Hernandez MD Primary Care Provider [phone] Encounter Details Date Type Department Care Team Description 11/01/2015 Substation Supervisor Report Medical Records [address] [place] [address] Rosalind Hackett Social History Tobacco Use Types [...] on filedocumented in this encounter Care Teams Facility Maintenance Technician Relationship Specialty Start Date End Date Millie Whitney MD PCP - General 06/26/07 05/16/20 Aron Godinez MD [address] [place] [address] PCP - General Internal Medicine 05/17/20 documented as of this encounter
--- OUTSIDE RECORDS SUMMARY | 2025-05-18 10:04 | XMS_ITS | Encounter Summary ---
Author Organization [facility] Address [address] [place] [address] Care Team Providers Care Health Technical Writer Name Role Phone Millie Whitney MD Primary Care Provider UnaAron Hammonds MD Primary Care Provider [phone] Encounter Details Date Type Department Care Team Description 03/17/2020 Bone Char Kiln Operator Report Medical Records [address] [place] [address] Abstract, Provider Social History Tobacco Use Types [...] have Coronavirus / COVID-19? No / Unsure 03/08/2020 1:04 PM EDT documented as of this encounter Plan of Treatment Not on file documented as of this encounter Visit Diagnoses Not on filedocumented in this encounter Care Teams Health Technical Writer Relationship Specialty Start Date End Date Millie Whitney MD PCP - General 06/26/07 05/16/20 Aron Godinez MD [address] [place] [address] PCP - General Internal Medicine 05/17/20 documented as of this encounter
--- OUTSIDE RECORDS SUMMARY | 2025-05-18 10:04 | XMS_ITS | Encounter Summary ---
Author Organization [facility] Address [address] [place] [address] Care Team Providers Care Sales Contract Administrator Name Role Phone Aron Godinez MD Primary Care Provider [phone] Encounter Details Date Type Department Care Team Description 09/13/2023 Track Watchman Report Medical Records [address] [place] [address] Jeff Lala MD Social History Tobacco Use [...] on filedocumented in this encounter Care Teams Sales Contract Administrator Relationship Specialty Start Date End Date Aron Godinez MD [address] [place] [address] PCP - General Internal Medicine 05/17/20 documented as of this encounter
--- OUTSIDE RECORDS SUMMARY | 2025-05-18 10:05 | XMS_ITS | Encounter Summary ---
Author Organization [facility] Address [address] [place] [address] Care Team Providers Care Watch Repair Person Name Role Phone Aron Godinez MD Primary Care Provider [phone] Encounter Details Date Type Department Care Team Description 10/01/2023 Orders Only Medical Records [address] [place] [address] Jeff Lala MD Social History Tobacco Use [...] on file documented as of this encounter Procedures Procedure Name Priority Date/Time Associated Diagnosis Comments OUTSIDE PLAIN FILM Routine 09/13/2023 OUTSIDE PLAIN FILM Routine 03/14/2023 documented in this encounter Results * OUTSIDE PLAIN FILM (09/13/2023) Jeff Lala MD RADIOLOGY * OUTSIDE PLAIN FILM (03/14/2023) Jeff Lala MD RADIOLOGY documented in this encounter Visit Diagnoses Not on filedocumented in this encounter Care Teams Watch Repair Person Relationship Specialty Start Date End Date Aron Godinez MD [address] [place] [address] PCP - General Internal Medicine 05/17/20 documented as of this encounter
--- OUTSIDE RECORDS SUMMARY | 2025-05-18 10:05 | XMS_ITS | Encounter Summary ---
Author Organization [facility] Address [address] [place] [address] Care Team Providers Care Band Salvager Name Role Phone Millie Whitney MD Primary Care Provider Unav ailable Aron Godinez MD Primary Care Provider [phone] Encounter Details Date Type Department Care Team Description 07/07/2013 Vessel Engineer Report Medical Records [address] [place] [address] Bonifacio Slaughter MD Social History Tobacco Use [...] on filedocumented in this encounter Care Teams Band Salvager Relationship Specialty Start Date End Date Millie Whitney MD PCP - General 06/26/07 05/16/20 Aron Godinez MD [address] [place] [address] PCP - General Internal Medicine 05/17/20 documented as of this encounter
--- OUTSIDE RECORDS SUMMARY | 2025-05-18 10:05 | XMS_ITS | Encounter Summary ---
Author Organization [facility]ly [facility] Address [address] [place] [address] Care Team Providers Care Maori Physiotherapist Name Role Phone Aron Godinez MD Primary Care Provider [phone] Reason for Visit * Reason Onset Date Comments Faxed Refill 08/09/2020 Encounter Details Date Type Department Care Team Description 08/09/2020 Refill Adult Medicine - [address] [address] Aron Godinez MD [address] [place] [address] Faxed Refill Social History Tobacco Use Types [...] encounter Miscellaneous Notes * Telephone Encounter - Lreoy Cox M.A. - 08/09/2020 3:40 PM EST Last office visit 12..20 Lab Results Component Value Date HGBA1C 8.6 [...] $20 ERICK 1500 / Product Type: HMO Vgx-auy-Jycevnj documented in this encounter Plan of Treatment Not on file documented as of this encounter Visit Diagnoses Diagnosis Type 2 diabetes mellitus with microalbuminuria, with long-term current use of insulin (HCC) Type 2 diabetes, uncontrolled, with renal manifestation Type II or unspecified type diabetes mellitus with renal manifestations, uncontrolled documented in this encounter Care Teams Maori Physiotherapist Relationship Specialty Start Date End Date Aron Godinez MD [address] [place] [address] PCP - General Internal Medicine 05/17/20 documented as of this encounter
--- OUTSIDE RECORDS SUMMARY | 2025-05-18 10:05 | XMS_ITS | Encounter Summary ---
Author Organization [facility] Address [address] [place] [address] Care Team Providers Care Arrow Point Attacher Name Role Phone Aron Godinez MD Primary Care Provider [phone] Reason for Visit * Reason Onset Date Comments Prior Authorization 01/01/2024 Encounter Details Date Type Department Care Team Description 01/01/2024 Telephone Endocrinology - [place] [address] [place] [address] Sandi Cummings PA-C [address] [place] [address] Prior Authorization Social History Tobacco Use Types [...] from 01/04/24 until 01/03/27 Approval faxed to [facility] at [phone] * Telephone Encounter - Arabella Crespo M.A. [...] Is this a Cover My Meds request: Milnor of Medication Ozempic Dose of Medication 0.25 or 0.5 MG What is the RX # from the faxed refill? [id number] How does patient take this med? Inject 0.5 mg into the skin every 7 days. What Pharmacy did the fax come from: [facility] fax #: [phone] documented in this encounter Plan of Treatment Not on file documented as of this encounter Visit Diagnoses Not on filedocumented in this encounter Care Teams Arrow Point Attacher Relationship Specialty Start Date End Date Aron Godinez MD [address] [place] [address] PCP - General Internal Medicine 05/17/20 documented as of this encounter
--- OUTSIDE RECORDS SUMMARY | 2025-05-18 10:05 | XMS_ITS | Encounter Summary ---
Author Organization [facility] Address [address] [place] [address] Care Team Providers Care Track Liner Operator Name Role Phone Millei Whitney MD Primary Care Provider Unav Aron Hernandez MD Primary Care Provider [phone] Encounter Details Date Type Department Care Team Description 07/24/2013 SCAN Medical Records [address] [place] [address] Abstract, Provider Social History Tobacco Use Types [...] on filedocumented in this encounter Care Teams Track Liner Operator Relationship Specialty Start Date End Date Millie Whitney MD PCP - General 06/26/07 05/16/20 Aron Godinez MD [address] [place] [address] PCP - General Internal Medicine 05/17/20 documented as of this encounter
--- OUTSIDE RECORDS SUMMARY | 2025-05-18 10:05 | XMS_ITS | Encounter Summary ---
Author Organization [facility] Address [address] [place] [address] Care Team Providers Care Customer Account Representative Name Role Phone Millie Whitney MD Primary Care Provider Unav chiable Aron Godinez MD Primary Care Provider [phone] Encounter Details Date Type Department Care Team Description 11/30/2016 Chemical Research Worker Report Medical Records [address] [place] [address] Rosalind Hackett Social History Tobacco Use Types [...] on filedocumented in this encounter Care Teams Customer Account Representative Relationship Specialty Start Date End Date Millie Whitney MD PCP - General 06/26/07 05/16/20 Aron Godinez MD [address] [place] [address] PCP - General Internal Medicine 05/17/20 documented as of this encounter
--- OUTSIDE RECORDS SUMMARY | 2025-05-18 10:05 | XMS_ITS | Encounter Summary ---
Author Organization [facility] Address [address] [place] [address] Care Team Providers Care Director Informatics Name Role Phone Millie Whitney MD Primary Care Provider Unav Aron Hernandez MD Primary Care Provider [phone] Encounter Details Date Type Department Care Team Description 04/22/2016 Release of Information Medical Records [address] [place] [address] Abstract, Provider Social History Tobacco Use Types [...] on filedocumented in this encounter Care Teams Director Informatics Relationship Specialty Start Date End Date Millie Whitney MD PCP - General 06/26/07 05/16/20 Aron Godinez MD [address] [place] [address] PCP - General Internal Medicine 05/17/20 documented as of this encounter
--- OUTSIDE RECORDS SUMMARY | 2025-05-18 10:05 | XMS_ITS | Encounter Summary ---
Author Organization [facility] Address [address] [place] [address] Care Team Providers Care Client Care Manager Name Role Phone Aron Godinez MD Primary Care Provider [phone] Encounter Details Date Type Department Care Team Description 09/12/2023 Telephone Endocrinology - [place] [address] [place] [address] Sandi Cummings PA-C [address] [place] [address] Social History Tobacco Use Types Packs/Day Years [...] on filedocumented in this encounter Care Teams Client Care Manager Relationship Specialty Start Date End Date Aron Godinez MD [address] [place] [address] PCP - General Internal Medicine 05/17/20 documented as of this encounter
--- OUTSIDE RECORDS SUMMARY | 2025-05-18 10:05 | XMS_ITS | Encounter Summary ---
Author Organization [facility] [place] [facility] Address [address] [place] [address] Care Team Providers Care Printing Specialist Name Role Phone Aron Godinez MD Primary Care Provider [phone] Encounter Details Date Type Department Care Team Description 12/16/2020 Release of Information Medical Records [address] [place] [address] Abstract, Provider Social History Tobacco Use Types [...] on filedocumented in this encounter Care Teams Printing Specialist Relationship Specialty Start Date End Date Aron Godinez MD [address] [place] [address] PCP - General Internal Medicine 05/17/20 documented as of this encounter
--- OUTSIDE RECORDS SUMMARY | 2025-05-18 10:06 | XMS_ITS | Encounter Summary ---
Author Organization [facility] Address [address] [place] [address] Care Team Providers Care Form Setter Metal Road Forms Name Role Phone Millie Whitney MD Primary Care Provider Unav chiable Aron Godinez MD Primary Care Provider [phone] Encounter Details Date Type Department Care Team Description 09/19/2013 Non Destructive Evaluation Technician Report Medical Records [address] [place] [address] Avtar Vogt Social History Tobacco Use Types [...] on filedocumented in this encounter Care Teams Form Setter Metal Road Forms Relationship Specialty Start Date End Date Millie Whitney MD PCP - General 06/26/07 05/16/20 Aron Godinez MD [address] [place] [address] PCP - General Internal Medicine 05/17/20 documented as of this encounter
--- OUTSIDE RECORDS SUMMARY | 2025-05-18 10:06 | XMS_ITS | Encounter Summary ---
Author Organization [facility] Address [address] [place] [address] Care Team Providers Care Catalyst Unit Operator Name Role Phone Millie Whitney MD Primary Care Provider Unav ailable Aron Godinez MD Primary Care Provider [phone] Encounter Details Date Type Department Care Team Description 01/27/2019 Scalehouse Attendant Report Medical Records [address] [place] [address] [place], [place] [place] [address] Social History Tobacco Use Types Packs/Day Years [...] on filedocumented in this encounter Care Teams Catalyst Unit Operator Relationship Specialty Start Date End Date Millie Whitney MD PCP - General 06/26/07 05/16/20 Aron Godinez MD [address] [place] [address] PCP - General Internal Medicine 05/17/20 documented as of this encounter
--- OUTSIDE RECORDS SUMMARY | 2025-05-18 10:06 | XMS_ITS | Encounter Summary ---
Author Organization [facility] Address [address] [place] [address] Care Team Providers Care Diet Counselor Name Role Phone Millie Whitney MD Primary Care Provider Unav Aron Hernandez MD Primary Care Provider [phone] Encounter Details Date Type Department Care Team Description 08/15/2017 SCAN Medical Records [address] [place] [address] Abstract, Provider Social History Tobacco Use Types [...] on filedocumented in this encounter Care Teams Diet Counselor Relationship Specialty Start Date End Date Millie Whitney MD PCP - General 06/26/07 05/16/20 Aron Godinez MD [address] [place] [address] PCP - General Internal Medicine 05/17/20 documented as of this encounter
--- OUTSIDE RECORDS SUMMARY | 2025-05-18 10:06 | XMS_ITS | Encounter Summary ---
Author Organization [facility] Address [address] [place] [address] Care Team Providers Care Seamstress Fitter Name Role Phone Millie Whitney MD Primary Care Provider Aron Venegas MD Primary Care Provider [phone] Encounter Details Date Type Department Care Team Description 05/16/2019 Telephone Allergy [place] [address] [place] [phone] Amy Nickerson PA-C Social History Tobacco Use [...] for challenge appointment * Telephone Encounter - Meorn Adkins - 05/20/2019 1:47 PM EST Called [...] on filedocumented in this encounter Care Teams Seamstress Fitter Relationship Specialty Start Date End Date Millie Whitney MD PCP - General 06/26/07 05/16/20 Aron Godinez MD [address] [place] [address] PCP - General Internal Medicine 05/17/20 documented as of this encounter
--- OUTSIDE RECORDS SUMMARY | 2025-05-18 10:06 | XMS_ITS | Encounter Summary ---
Author Organization [facility] Address [address] [place] [address] Care Team Providers Care Inbound Sales Advisor Name Role Phone Millie Whitney MD Primary Care Provider Unav Aron Hernandez MD Primary Care Provider [phone] Encounter Details Date Type Department Care Team Description 07/19/2015 Quarry Plant Crusher Operator Report Medical Records [address] [place] [address] Rosalind Hackett Social History Tobacco Use Types [...] on filedocumented in this encounter Care Teams Inbound Sales Advisor Relationship Specialty Start Date End Date Millie Whitney MD PCP - General 06/26/07 05/16/20 Aron Godinez MD [address] [place] [address] PCP - General Internal Medicine 05/17/20 documented as of this encounter
--- OUTSIDE RECORDS SUMMARY | 2025-05-18 10:06 | XMS_ITS | Encounter Summary ---
Author Organization [facility] Address [address] [place] [address] Care Team Providers Care Protozoology Teacher Name Role Phone Millie Whitney MD Primary Care Provider Unav chiable Aron Godinez MD Primary Care Provider [phone] Encounter Details Date Type Department Care Team Description 12/31/2012 Lan Manager Report Medical Records [address] [place] [address] Rosalind Hackett Social History Tobacco Use Types [...] on filedocumented in this encounter Care Teams Protozoology Teacher Relationship Specialty Start Date End Date Millie Whitney MD PCP - General 06/26/07 05/16/20 Aron Godinez MD [address] [place] [address] PCP - General Internal Medicine 05/17/20 documented as of this encounter
--- OUTSIDE RECORDS SUMMARY | 2025-05-18 10:06 | XMS_ITS | Encounter Summary ---
Author Organization [facility] Address [address] [place] [address] Care Team Providers Care Lap Layer Name Role Phone Millie Whitney MD Primary Care Provider Unav chiable Aron Godinez MD Primary Care Provider [phone] Encounter Details Date Type Department Care Team Description 10/31/2013 Mixing Roll Operator Report Medical Records [address] [place] [address] Avtar Vogt Social History Tobacco Use Types [...] on filedocumented in this encounter Care Teams Lap Layer Relationship Specialty Start Date End Date Millie Whitney MD PCP - General 06/26/07 05/16/20 Aron Godinez MD [address] [place] [address] PCP - General Internal Medicine 05/17/20 documented as of this encounter
--- OUTSIDE RECORDS SUMMARY | 2025-05-18 10:06 | XMS_ITS | Encounter Summary ---
Author Organization [facility] Address [address] [place] [address] Care Team Providers Care Regional Geodetic Advisor Name Role Phone Millie Whitney MD Primary Care Provider Unav ailable Aron Godinez MD Primary Care Provider [phone] Encounter Details Date Type Department Care Team Description 04/16/2012 Telephone [address]erm[address] [place] [address] Beatrice Webster MD Social History Tobacco Use Types Packs/Day [...] on filedocumented in this encounter Care Teams Regional Geodetic Advisor Relationship Specialty Start Date End Date Millie Whitney MD PCP - General 06/26/07 05/16/20 Aron Godinez MD [address] [place] [address] PCP - General Internal Medicine 05/17/20 documented as of this encounter
--- OUTSIDE RECORDS SUMMARY | 2025-05-18 10:06 | XMS_ITS | Encounter Summary ---
Author Organization [facility] Address [address] [place] [address] Care Team Providers Care Fitness And Wellness Manager Name Role Phone Aron Godinez MD Primary Care Provider [phone] Encounter Details Date Type Department Care Team Description 10/06/2021 Release of Information Medical Records [address] [place] [address] Abstract, Provider Social History Tobacco Use Types [...] suspected to have Coronavirus/COVID-19? No / Unsure 09/13/2021 9:55 AM EDT documented as of this encounter Plan of Treatment Not on file documented as of this encounter Visit Diagnoses Not on filedocumented in this encounter Care Teams Fitness And Wellness Manager Relationship Specialty Start Date End Date Aron Godinez MD [address] [place] [address] PCP - General Internal Medicine 05/17/20 documented as of this encounter
--- OUTSIDE RECORDS SUMMARY | 2025-05-18 10:06 | XMS_ITS | Encounter Summary ---
Author Organization [facility] Address [address] [place] [address] Care Team Providers Care Rescue Worker Name Role Phone Aron Godinez MD Primary Care Provider [phone] Reason for Visit * Reason Onset Date Comments medication problems 04/06/2022 Call From Pharmacy 04/06/2022 Encounter Details Date Type Department Care Team Description 04/06/2022 Telephone Respiratory and Diabetes Medicaid/ACO Pharmacist [address] [place] [address] [phone] Lois Wilson, Pharm.D [address] [place] [address] medication problems; Call From Pharmacy Social History Tobacco Use Types Packs/Day Years [...] suspected to have Coronavirus/COVID-19? No / Unsure 04/04/2022 2:23 PM EDT documented as of this encounter Miscellaneous Notes * Telephone Encounter - Arabella Day - 04/06/2022 2:25 PM EDT Who is calling? A pharmacist: Pharmacy: [facility]ist Name: [facility] Phone # [phone] Name of the medication Insulin Glargine-yfgn 100 UNIT/ML Solution What is the specific problem or interaction? [facility] states script is missing signature - they need anew script faxed If the patient is having a problem with taking the med - how long has the problem been going on? N/A documented in this encounter Plan of Treatment Not on file documented as of this encounter Visit Diagnoses Not on filedocumented in this encounter Care Teams Rescue Worker Relationship Specialty Start Date End Date Aron Godinez MD [address] [place] [address] PCP - General Internal Medicine 05/17/20 documented as of this encounter
--- OUTSIDE RECORDS SUMMARY | 2025-05-18 10:06 | XMS_ITS | Encounter Summary ---
Author Organization [facility] Address [address] [place] [address] Care Team Providers Care Field Marketer Name Role Phone Aron Godinez MD Primary Care Provider [phone] Reason for Visit * Reason Comments E-prescribe Rx Request Encounter Details Date Type Department Care Team Description 11/09/2021 Refill Adult Medicine - [place] [address] [place] [address] Sandi Cummings PA-C [address] [place] [address] E-prescribe Rx Request Social History Tobacco Use [...] N/A Patients current insurance carrier is: Payor: [facility] SELF FUNDED / Plan: HMO $20 HARDIN 1500 / Product Type: HMO Gth-zgc-[id number] documented in this encounter Plan of Treatment Not on file documented as of this encounter Visit Diagnoses Not on filedocumented in this encounter Care Teams Field Marketer Relationship Specialty Start Date End Date Aron Godinez MD [address] [place] [address] PCP - General Internal Medicine 05/17/20 documented as of this encounter
--- OUTSIDE RECORDS SUMMARY | 2025-05-18 10:06 | XMS_ITS | Encounter Summary ---
Author Organization [facility] Address [address] [place] [address] Care Team Providers Care Human Resources Analyst Name Role Phone Millie Whitney MD Primary Care Provider Unav chiable Aron Godinez MD Primary Care Provider [phone] Encounter Details Date Type Department Care Team Description 05/06/2015 Gericare Aide Report Medical Records [address] [place] [address] Rosalind Hackett Social History Tobacco Use Types [...] on filedocumented in this encounter Care Teams Human Resources Analyst Relationship Specialty Start Date End Date Millie Whitney MD PCP - General 06/26/07 05/16/20 Aron Godinez MD [address] [place] [address] PCP - General Internal Medicine 05/17/20 documented as of this encounter
--- OUTSIDE RECORDS SUMMARY | 2025-05-18 10:06 | XMS_ITS | Encounter Summary ---
Author Organization [facility] Address [address] [place] [address] Care Team Providers Care Steel Barrel Reamer Name Role Phone Millie Whitney MD Primary Care Provider Unav Aron Hernandez MD Primary Care Provider [phone] Reason for Visit * Reason Onset Date Comments Eye Exam 08/24/2010 Encounter Details Date Type Department Care Team Description 08/24/2010 Telephone Eye Services-[address] [address] Sabrina Colindres, OD Eye Exam Social History [...] on filedocumented in this encounter Care Teams Steel Barrel Reamer Relationship Specialty Start Date End Date Millie Whitney MD PCP - General 06/26/07 05/16/20 Aron Godinez MD [address] [place] [address] PCP - General Internal Medicine 05/17/20 documented as of this encounter
--- OUTSIDE RECORDS SUMMARY | 2025-05-18 10:06 | XMS_ITS | Encounter Summary ---
Author Organization [facility] Address [address] [place] [address] Care Team Providers Care Small Brake Form Operator Name Role Phone Aron Godinez MD Primary Care Provider [phone] Reason for Visit * Reason Comments E-prescribe Rx Request Encounter Details Date Type Department Care Team Description 11/09/2021 Refill Adult Medicine - [place] [address] [place] [address] Sandi Cummings PA-C [address] [place] [address] E-prescribe Rx Request Social History Tobacco Use [...] Patients current insurance carrier is: Payor: [facility] SELF FUNDED / Plan: HMO $20 SECOND MESA 1500 / Product Type: HMO Lts-cjn-Vgunuqe documented in this encounter Plan of Treatment Not on file documented as of this encounter Visit Diagnoses Not on filedocumented in this encounter Care Teams Small Brake Form Operator Relationship Specialty Start Date End Date Aron Godinez MD [address] [place] [address] PCP - General Internal Medicine 05/17/20 documented as of this encounter
== END 2025-05-18 09:34 | disposition home or self-care (01) ==
LOC: HO.PMC 09:10
PROVIDERS: PCP Internal Medicine; Visit Provider Nurse Practitioner Family
DX: M25.511 Pain in right shoulder (principal); M25.512 Pain in left shoulder; M25.561 Pain in right knee; M17.11 Unilateral primary osteoarthritis, right knee; M19.011 Primary osteoarthritis, right shoulder; M75.82 Other shoulder lesions, left shoulder
CPT/HCPCS: 99213

== ENCOUNTER → 2025-05-18 09:09 | Outpatient (BNVA) | payer MEDICARE, OTHER, SELFPAY | PROVIDERS: PCP Internal Medicine; Visit Provider Nurse Practitioner Family | DX: M25.561 Pain in right knee (principal); M17.11 Unilateral primary osteoarthritis, right knee; M25.511 Pain in right shoulder; M25.512 Pain in left shoulder; M19.011 Primary osteoarthritis, right shoulder; M75.82 Other shoulder lesions, left shoulder; E11.65 Type 2 diabetes mellitus with hyperglycemia; Z79.4 Long term (current) use of insulin; Z79.84 Long term (current) use of oral hypoglycemic drugs | CPT/HCPCS: 99212 ==